=== PATIENT | female | born 1995 | race Caucasian/White ===

== ENCOUNTER 2024-09-01 21:45 | Observation (INO) | payer OTHER, SELFPAY ==
--- OUTSIDE RECORDS SUMMARY | 2024-07-31 15:15 | XMS_ITS | Encounter Summary ---
Author Organization [facility] Address [address] [place] [address] Phone Care Team Providers Care Clinical Lab Technologist Name Role Phone Misa Reed PA-C Primary Care Provider [phone] Violetta Gallegos MD Unavailable Reason for Visit * Reason Comments Routine Visit Pt would like to discuss weight gain Encounter Details Date Type Department Care Team (Latest Contact Info) Description 07/31/2024 3:15 PM EDT Routine [facility] [address] [place] [phone] Elodia Ward, TOLL GATE KEEPER-CN [address] Department of SHIP/REC/DOC CONTROL-Nurse Midwifery [place], [place] [id number] POTS (postural orthostatic tachycardia syndrome) (Primary Dx); Vasovagal syncope; 23 weeks gestation of ([facility]); Anxiety and depression; Mild intermittent asthma without complication ([facility]); Heart palpitations Social History Tobacco Use Types Packs/Day Years Used Date Smoking Tobacco: Never Smokeless Tobacco: Never Alcohol Use Standard Drinks/Week Comments Not Currently 0 (1 standard drink = 0.6 oz pur e alcohol) Social PHQ-2 Answer Date Recorded Patient Health Questionnaire-2 Score 0 02/29/2024 Frederick Depression Scale Answer Date Recorded Frederick Depression Scale Total 0 08/21/2024 The thought of harming myself has occurred to me . Never 08/21/2024 Estimated Date of Delivery Comme nts Yes 11/22/2024 Based on Ultraso und Sex and Gender Information Value Date Recorded Sex Assigned at Female 12/02/2022 7:30 AM EDT Legal Sex Female 3:02 AM EST Gender Identity Female 12/02/2022 7:30 AM EDT Sexual Orientation Not on file COVID-19 Exposure Response Date Recorded In the last 10 days, have yo u been in contact with someone who was confirmed or suspected to have Coronavirus/COVID-19? No / Unsure 07/18/2024 4:20 PM EDT documented as of this encounter Last Filed Vital Signs Vital Sign Reading Time Taken Comments Blood Pressure 116/78 07/31/2024 3:36 PM EDT Pulse - - Temperature - - Respiratory Rate - - Oxygen Saturation - - Inhaled Oxygen Concentration - - Weight 90 kg (198 lb 6.4 oz) 07/31/2024 3:36 PM EDT Height - - Body Mass Index 33.02 05/24/2024 5:43 PM EDT documented in this encounter Patient Instructions * Patient Instructions* Elodia Ward APRN-LUL - 07/31/2024 3:15 PM EDT The [facility] at [facility] has a Certified Nurse Venetian Blind Worker data solutions architect 30/08 who is available to discuss any related concerns or urgent needs that cannot wait until the next business day. Please call the office where you are seen at during the day. call center specialist numbers for after hours are listed below. At any time you would like to tour our facilities, please call [phone] to set up a tour If you are (less than 37) weeks and experience: More than 5 contractions in an 1 hour period If you have fluid leaking from your vagina Bleeding that is as heavy as a period Decreased movements or changes in your baby's movement after 24 weeks A headache that does not go away with Tylenol or rest If you full term (37 weeks or greater) and experience: Contractions that are 5 minutes a part for 2 hours that you cannot walk or talk through A gush of fluid from your vagina Bleeding that is as heavy as a period Decrease movements or changes in your baby's movements A headache that does not go away with Tylenol or rest During the weekday office hours please call the office you are normally seen at. For non-urgent OB needs, please contact our OB coordinator MFelixF during normal business hours by calling [phone] After hours please call: For patients planning on birthing at [facility] and need to speak to the the underground supervisor data solutions architect: [phone] For patients planning on birthing at [facility] or [facility]) and need to speakto the underground supervisor data solutions architect: [phone] DO NOT USE Curio MESSAGES FOR URGENT NEEDS- THEY ARE NOT MONITORED 30/08 documented in this encounter Progress Notes * JÚNIOR Alva - 07/31/2024 3:15 PM EDT Ob Visit 07/31/24 SUBJECTIVE HPI: Janeth Clark is a 29 y.o. at 23w5d here for RPNV. She has no contractions, bleeding, or LOF. Reports normal movement. Patient reports no concerns today OBJECTIVE Visit Vitals BP 116/78 Wt 90 kg (198 lb 6.4 oz) LMP 02/20/2024 BMI 33.02 kg/m?? OB Status Smoking Status Never BSA 2.03 m?? ASSESSMENT & PLAN Janeth Clark is a 29 y.o. at 23w5d here for the following concerns we addressed today: Problem List Items Addressed This Visit 23 weeks gestation of ([facility]) Overview Desired provider in labor: [x] CNM [] Physician [] Either Acceptable [x] Blood Products: [x] Yes, accepts [] No, needs counseling [x] Initial BMI: 31.28 [x] Labs: A1c added [x] Cervical Cancer Screening up to date [x] Rh status: pos [x] Screen for IPV and Substance Use Risk: [x] Genetic Screening (cfDNA): neg [x] First Trimester Anatomy Screen (11-13.6 wks): [x] Baby ASA (initiated): [x] dated by: [x] Anatomy US: (19-20 wks) [] Federal Sterilization consent signed (if indicated): [] 1hr GCT at 24-28wks: ordered 07/31 [] Rhogam (if indicated): [] Surveillance (if indicated): [] Tdap (27-32 wks, may be given up to 36 wks if initial window missed): [] RSV (32-36 wks) ( to end feb): [] Feeding Intentions: [] control method: [] GBS at 36 - 37 wks: [] 39 weeks discussion of IOL vs. Expectant management: [] Mode of delivery ( anticipated ): Relevant Orders CBC Anemia Panel With Reflex, Glucose, 1 Hour Screen, Syphilis Screen with Reflex Anxiety and depression Overview - Has been stable on Zoloft 25 mg daily Heart palpitations Mild intermittent asthma without complication ([facility]) Overview - Current med: prn albuterol inhaler Exercise inducted POTS (postural orthostatic tachycardia syndrome) - Primary Vasovagal syncope Overview - Following with hemmer chainstitch, Dr. Gallegos - 05/07/22 - echocardiogram was normal - 05/04/22 - 48hr Holter Monitor was normal - 04/22/22 - EKG with sinus tachycardia, otherwise normal 04/27/23 - no longer taking beta dale, taking kCl 20MEQ ER Added to CNM case review 04/03, ok to continue to CN care. Needed follow up. RTC in 4 weeks JÚNIOR Alva documented in this encounter Plan of Treatment Upcoming Encounters Date Type Department Care Team (Late st Contact Info) Description 09/11/2024 2:30 PM EDT Routine [facility] [address] [address] Elodia Ward APRN-CNM [address] Department of SHIP/REC/DOC CONTROL-[place] [address] 09/25/2024 2:30 PM EDT Routine [facility] [address] [facility] [address] [place] [address] Elodia Ward, TOLL GATE KEEPER-CNM [address] Department of SHIP/REC/DOC CONTROL-[place] [address] 10/09/2024 2:45 PM EDT Routine [facility] [address] [address] Elodia Ward, TOLL GATE KEEPER-CNM [address] Department of SHIP/REC/DOC CONTROL-[place] [address] 10/23/2024 2:45 PM EDT Routine [facility] [address] [address] Elodia Ward, TOLL GATE KEEPER-CNM [address] Department of SHIP/REC/DOC CONTROL-[place]urse [place] [address] 10/30/2024 3:00 PM EDT Routine [facility] [address] [phone] Elodia Ward, TOLL GATE KEEPER-CNM [address] Department of SHIP/REC/DOC CONTROL-Nurse [place] [address] 11/06/2024 3:15 PM EDT Routine [facility] [address] [address] Elodia Ward, TOLL GATE KEEPER-CNM [address] Department of SHIP/REC/DOC CONTROL-[place] [address] 11/13/2024 3:15 PM EDT Routine [facility] [address] [address] Elodia Ward, TOLL GATE KEEPER-CNM [address] Department of SHIP/REC/DOC CONTROL-[place]urse [place] [address] 11/20/2024 4:00 PM EDT Office Visit [facility] Medical Office Building [address] [facility] [address] [place] [address] Violetta Gallegos MD [address] [facility] [address] [place] [address] 11/21/2024 8:00 AM EDT Routine [address] [place] [phone] [facility] [address] [facility] Department of SHIP/REC/DOC CONTROL-[place] [address] documented as of this encounter Procedures Procedure Name Priority Date/Time Associated Diagnosis Comments REFLEX ADDED, ANEMIA PANEL Routine 08/21/2024 2:27 PM EDT 23 weeks gestation of ([facility]) CBC ANEMIA PANEL WITH REFLEX, Routine 08/21/2024 2:27 PM EDT 23 weeks gestation of ([facility]) CBC Routine 08/21/2024 2:27 PM EDT 23 weeks gestation of ([facility]) SYPHILIS SCREENING WITH REFLEX Routine 08/21/2024 2:25 PM EDT 23 weeks gestation of ([facility]) GLUCOSE, 1 HOUR SCREEN, Routine 08/21/2024 2:25 PM EDT 23 weeks gestation of ([facility]) documented in this encounter Results * CBC Anemia Panel with Reflex, (08/21/2024 2:27 PM EDT) Reflex added, Anemia panel No reflex. 08/22/2024 2:04 AM EDT [facility] Blood Venous blood specimen / Unknown Venipuncture / Unknown 08/21/2024 2:27 PM EDT 08/21/2024 9:46 PM EDT Elodia Ward TOLL GATE KEEPER-CNM LAB BLOOD ORDERABLES Final Result [facility] [address] [address] [place] [address] * (ABNORMAL) CBC (08/21/2024 2:27 PM EDT) WBC 10.3 4.4 - 11.3 x10*3/uL LAB HEMATOLOGY METHOD 08/21/2024 9:51 PM EDT [facility] nRBC 0.0 0.0 - 0.0 /100 WBCs LAB HEMATOLOGY METHOD 08/21/2024 9:51 PM EDT [facility] RBC 3.81(L) 4.00 - 5.20 x10*6/uL LAB HEMATOLOGY METHOD 08/21/2024 9:51 PM EDT [facility] Hemoglobin 11.8(L) 12.0 - 16.0 g/dL LAB HEMATOLOGY METHOD 08/21/2024 9:51 PM EDT [facility] Hematocrit 35.4(L) 36.0 - 46.0 % LAB HEMATOLOGY METHOD 08/21/2024 9:51 PM EDT [facility] MCV 93 80 - 100 fL LAB HEMATOLOGY METHOD 08/21/2024 9:51 PM EDT [facility] MCH 31.0 26.0 - 34.0 pg LAB HEMATOLOGY METHOD 08/21/2024 9:51 PM EDT [facility] MCHC 33.3 32.0 - 36.0 g/dL LAB HEMATOLOGY METHOD 08/21/2024 9:51 PM EDT [facility] RDW 12.9 11.5 - 14.5 % LAB HEMATOLOGY METHOD 08/21/2024 9:51 PM EDT [facility] Platelets 330 150 - 450 x10*3/uL LAB HEMATOLOGY METHOD 08/21/2024 9:51 PM EDT [facility] Blood Venous blood specimen / Unknown Venipuncture / Unknown 08/21/2024 2:27 PM EDT 08/21/2024 9:46 PM EDT Elodia Lance Sylvia [facility] BLOOD ORDERABLES Final Result [facility] [address] [place] [address] * Syphilis Screen with Reflex (08/21/2024 2:25 PM EDT) T. PALLIDUM AB Negative Negative [facility] Comment: No antibodies to T. pallidum (the agent causing syphilis) were detected in the specimen. This result, however, does not exclude very recent T. pallidum infection; testing of a second specimen, collected 2-4 weeks after this specimen, is recommended if the index of suspicion for recent infection is high. Blood Venous blood specimen / Unknown 08/21/2024 2:25 PM EDT 08/21/2024 2:26 PM EDT Narrative GENE MOTA - 08/23/2024 7:40 PM EDT FASTING:NO FASTING: NO Elodia Ward [facility] BLOOD ORDERABLES Final Result Performing Organization Address City/[facility]/ZIP Co de Phone Number GENE FERMIN [address] [facility]ER[facility] [facility] [place] H[place]ITALJeffW[place], [place] [phone] [facility]Celena [facility] [place] [address] [facility] [address] [place], [place] * Glucose, 1 Hour Screen, (08/21/2024 2:25 PM EDT) GLUCOSE, GESTATIONAL SCREEN (50G)-135 CUTOFF 113 <135 mg/dL [facility] Blood Venous blood specimen / Unknown 08/21/2024 2:25 PM EDT 08/21/2024 2:26 PM EDT Narrative [facility] - 08/23/2024 7:40 PM EDT FASTING:NO FASTING: NO us Elodia Ward TOLL GATE KEEPER-CNM LAB BLOOD ORDERABLES Final Result [facility] [employer] [facility] [address] [place] [address] documented in this encounter Visit Diagnoses Diagnosis POTS (postural orthostatic tachycardia syndrome)- Primary Unspecified tachycardia Vasovagal syncope Syncope and collapse 23 weeks gestation of ([facility]) Anxiety and depression Mild intermittent asthma without complication ([facility]) Heart palpitations Palpitations documented in this encounter Additional Health Concerns Assessment Noted Time A fall risk assessment has been complete d for the patient 02/29/2024 8:30 AM EST documented as of this encounter Care Teams Clinical Lab Technologist Relationship Specialty Start Date End Date Misa Reed PA-C [address] [facility] [address] [place] [address] PCP - General Family Medicine 10/12/22 Violetta Gallegos MD [address] [facility] [address] [place] [address] Consulting Physician Cardiology 03/03/23 documented as of this encounter
--- OUTSIDE RECORDS SUMMARY | 2024-08-21 14:30 | XMS_ITS | Encounter Summary ---
Author Organization [facility] Address [address] [place] [address] Phone Care Team Providers Care Heliotherapist Name Role Phone Misa Reed PA-C Primary Care Provider [phone] Violetta Gallegos MD Unavailable Reason for Visit * Reason Comments Routine Visit No concerns Encounter Details Date Type Department Care Team (Latest Contact Info) Description 08/21/2024 2:30 PM EDT Routine [facility] [address] [phone] Elodia Ward, STORAGE BATTERY CHARGER-CN [address] Department of INTERLACER-Nurse Midwifery [place], [place] [phone] POTS (postural orthostatic tachycardia syndrome) (Primary Dx); Tachycardia; Vasovagal syncope; 26 weeks gestation of ([facility]); Anxiety and depression; Mild intermittent asthma without complication ([facility]) Social History Tobacco Use Types Packs/Day Years Used Date Smoking Tobacco: Never Smokeless Tobacco: Never Alcohol Use Standard Drinks/Week Comments Not Currently 0 (1 standard drink = 0.6 oz pur e alcohol) Social PHQ-2 Answer Date Recorded Patient Health Questionnaire-2 Score 0 02/29/2024 Delight Depression Scale Answer Date Recorded Delight Depression Scale Total 0 08/21/2024 The thought of harming myself has occurred to me . Never 08/21/2024 Estimated Date of Delivery Comme nts Yes 11/22/2024 Based on Ultraso und Sex and Gender Information Value Date Recorded Sex Assigned at Female 12/02/2022 7:30 AM EDT Legal Sex Female 3:02 AM EST Gender Identity Female 12/02/2022 7:30 AM EDT Sexual Orientation Not on file documented as of this encounter Last Filed Vital Signs Vital Sign Reading Time Taken Comments Blood Pressure 124/72 08/21/2024 2:34 PM EDT Pulse - - Temperature - - Respiratory Rate - - Oxygen Saturation - - Inhaled Oxygen Concentration - - Weight 94.5 kg (208 lb 6.4 oz) 08/21/2024 2:34 P M EDT Height - - Body Mass Index 34.68 05/24/2024 5:43 PM EDT documented in this encounter Progress Notes * Elodia Ward, [facility] - 08/21/2024 2:30 PM EDT Ob Visit 08/21/24 SUBJECTIVE HPI: Janeth Clark is a 29 y.o. at 26w5d here for RPNV. She has no contractions, no bleeding, or no LOF. Reports normal movement. OBJECTIVE Visit Vitals BP 124/72 Wt 94.5 kg (208 lb 6.4 oz) LMP 02/20/2024 BMI 34.68 kg/m?? OB Status Smoking Status Never BSA 2.08 m?? ASSESSMENT & PLAN Janeth Clark is a 29 y.o. at 26w5d here for the following concerns we addressed today: Problem List Items Addressed This Visit Tachycardia Overview - Followed by navy material inspector, Dr. Gallegos - On metoprolol XL (it helps) but trying to taper off (cardio doesn't want her on it residential) Vasovagal syncope Overview - Following with navy material inspector, Dr. Gallegos - 05/07/22 - echocardiogram was normal - 05/04/22 - 48hr Holter Monitor was normal - 04/22/22 - EKG with sinus tachycardia, otherwise normal 04/27/23 - no longer taking beta dale, taking kCl 20MEQ ER Added to CNM case review 04/03, ok to continue to CNM care. No needed follow up. Anxiety and depression Overview - Has been stable on Zoloft 25 mg daily Mild intermittent asthma without complication ([facility]) Overview - Current med: prn albuterol inhaler Exercise inducted 26 weeks gestation of ([facility]) Overview Desired provider in labor: [x] [...] (if indicated): [] 1hr GCT at 24-28wks: completed today, follow-up at next PPV [] Rhogam (if indicated): [] Surveillance (if indicated): [] Tdap (27-32 wks, may be given up to 36 wks if initial window missed): discussed at 08/21/2024 visit [] RSV (32-36 wks) ( to end of Feb): [x] Feeding Intentions: breastfeed, and pumping [] control method: [] GBS at 36 - 37 wks: [] 39 weeks discussion of IOL vs. Expectant management: [x] Mode of delivery ( anticipated ): vaginal, yeq-hojbzaftl-ehvdzu hypno classes POTS (postural orthostatic tachycardia syndrome) - Primary RTC in 2 weeks Flor MUELLER I saw and evaluated the patient. I personally obtained the evans and critical portions of the historyand physical exam or was physically present for evans and critical portions performed by the resident/ALMAS. I reviewed the resident/ALMAS's documentation and discussed the patient with the resident/ALMAS. Sara with the resident/ALMAS's medical decision making as documented in the note. JÚNIOR Alva documented in this encounter Plan of Treatment Upcoming Encounters Date Type Department Care Team (Late st Contact Info) Description 09/11/2024 2:30 PM EDT Routine [facility] [address] [facility] [address] [place] [address] Elodia Ward, STORAGE BATTERY CHARGER-CNM [address] Department of [place] [address] 09/25/2024 2:30 PM EDT Routine [facility] [address] [facility] [address] [place] [phone] Elodia Ward, STORAGE BATTERY CHARGER-CNM [address] Department of [place] [address] 10/09/2024 2:45 PM EDT Routine [facility] [address] [phone] Elodia Ward, STORAGE BATTERY CHARGER-CNM [address] Department of [place] [address] 10/23/2024 2:45 PM EDT Routine [facility] [address] [phone] Elodia Ward, STORAGE BATTERY CHARGER-CNM [address] Department of [place] [address] 10/30/2024 3:00 PM EDT Routine [facility] [address] [address] Elodia Ward, STORAGE BATTERY CHARGER-CNM [address] Department of [place] [address] 11/06/2024 3:15 PM EDT Routine [facility] [address] [facility] [address] [place] [phone] Elodia Ward, STORAGE BATTERY CHARGER-CNM [address] [facility] Department of [place] [address] 11/13/2024 3:15 PM EDT Routine [facility] [address] [facility] [address] [place] [phone] Elodia Ward, STORAGE BATTERY CHARGER-CNM [address] [facility] Department of [place] [address] 11/20/2024 4:00 PM EDT Office Visit [facility] Medical Office Building [address] [facility] [address] [place] [address] Violetta Gallegos MD [address] [place] [address] 11/21/2024 8:00 AM EDT Routine [address] [place] [phone] Elodia Ward, STORAGE BATTERY CHARGER-CNM [address] [facility] Department of [place] [address] documented as of this encounter Visit Diagnoses Diagnosis POTS (postural orthostatic tachycardia syndrome)- Primary Unspecified tachycardia Tachycardia Unspecified tachycardia Vasovagal syncope Syncope and collapse 26 weeks gestation of ([facility]) Anxiety and depression Mild intermittent asthma without complication ([facility]) documented in this encounter Additional Health Concerns Assessment Noted Time A fall risk assessment has been complete d for the patient 02/29/2024 8:30 AM EST documented as of this encounter Care Teams Heliotherapist Relationship Specialty Start Date End Date Misa Reed PA-C [address] [place] [address] [address] [place] [address] PCP - General Family Medicine 10/12/22 Violetta Gallegos MD [address] [address] Consulting Physician Cardiology 03/03/23 documented as of this encounter
--- OUTSIDE RECORDS SUMMARY | 2024-08-28 16:00 | XMS_ITS | Encounter Summary ---
Author Organization [facility] Address [address] [place] [address] Phone Care Team Providers Care Property Custodian Name Role Phone Misa Reed PA-C Primary Care Provider [phone] Violetta Gallegos MD Unavailable Encounter Details Date Type Department Care Team (Late st Contact Info) Description 08/28/2024 4:00 PM EDT [facility] [address] [facility] [address] [place] [phone] Lakeisha Georges DC [address] [facility] [address] [place], [place] [id number] Segmental and somatic dysfunction of lumbar region (Primary Dx); Chronic bilateral low back pain without sciatica; Segmental and somatic dysfunction of sacral region; Segmental and somatic dysfunction of pelvic region; Segmental and somatic dysfunction of thoracic region; Lumbar radiculopathy; Bilateral hip pain; Sacral back pain; Myalgia Social History Tobacco Use Types Packs/Day Years Used Date Smoking Tobacco: Never Smokeless Tobacco: Never Alcohol Use Standard Drinks/Week Comments Not Currently 0 (1 standard drink = 0.6 oz pur e alcohol) Social PHQ-2 Answer Date Recorded Patient Health Questionnaire-2 Score 0 02/29/[address] Depression Scale Answer Date Recorded [address] Depression Scale Total 0 08/21/2024 The thought [...] on file documented as of this encounter Progress Notes * Lakeisha Meghancaron, OTTO - 08/28/2024 4:00 PM EDT Images from the original note were not included. Subjective Patient ID: Janeth Clark is a 29 y.o. female who presents August 28, 2024 for acute right-sided low back pain. (4) VPCY Today, the patient rates their degree of pain as a 5 out of 10 on the numeric pain rating scale. Amber has started having an increase in her low back pain again. She is currently 28 weeks ,thinks that the baby went through a growth spurt recently and also suspects they are sitting lower in the abdomen now. Pain localizes to L>R lumbar and sacral regions, more sensitive to pain in extension based postures. We discussed her getting a belly band or starting to use kinesiology tape athome to help provide some additional support. She has not been sleeping as well as she likes and has started to notice additional swelling in her legs. INITIAL VISIT (07/10/2024): Janeth Crenshaw is a 29 year old female who presents to my office today as a new patient for evaluation and management of acute right-sided low back pain. She was referred by her marketing planning manager, Elodia Ward. Amber reports that her pain started 4 weeks ago, with no known cause. She is currently 21 weeks , and has never had this pain prior to her . This is also her first . She localizes the pain to the right SI joint and PSIS, in addition to pain in hip flexors bilaterally. Pain is made worse by sitting or standing for long periods of time, sleeping, weight-bearing on the right leg, and lying down. She notices that heat helps, stretching, and exercise. She is currently taking kick-boxing classes 3 times per week. She states she has to ease into movement, and that sometimes she feels as though her right leg is going to give out, although she is not noticing numbness or tingling down the leg. She has never had neonatal intensive care unit nurse before and expresses some anxiety around receiving treatment. Other: POTS due to covid, has been very stable since beginning medication. Also discussed acupuncture as an option in the future. Objective Physical Exam Musculoskeletal: Lumbar back: Tenderness present. Decreased range of motion. Positive right straight leg raise test. Back: Neurological: General: No focal deficit present. Mental Status: She is alert and oriented to person, place, and time. Cranial Nerves: No dysarthria or facial asymmetry. Sensory: Sensation is intact. Motor: Motor function is intact. Coordination: Coordination is intact. Gait: Gait is intact. Gait normal. Palpation of the following regions revealed: Thoracic: Thoracic paraspinals bilateral, muscular hypertonicity. Middle trapezius bilateral, muscular hypertonicity. Lower trapezius bilateral, muscular hypertonicity. Rhomboids bilateral, muscular hypertonicity. Lumbar: Lumbar paraspinals bilateral, hypertonicity and tenderness. Quadratus lumborum bilateral, hypertonicity and tenderness. Thoracolumbar fascia left, hypertonicity and tenderness. Gluteal left, hypertonicity and tenderness. Piriformis left, hypertonicity and tenderness. Segmental Joint(s): Segmental joint dysfunction was assessed with motion palpation and is identified in the following areas: Thoracic : T5, T6, T7, and T8 Lumbopelvic / Sacral SIJ : L2, L3, L4, L5/S1, and R SIJ Lower Extremities : R Hip and L Hip Assessment/Plan Today's Treatment Included: Spinal manipulation to the following regions of segmental dysfunction identified on examination, using age-appropriate and injury specific force. Segmental Joint(s) Thoracic : T5, T6, T7, and T8 Segmental Joint(s) Lumbopelvic/Sacral SIJ : L2, L3, L4, L5/S1, and R SIJ Extremity manipulation performed to the following regions: Lower Extremities : R Hip and L Hip Chiropractic manipulation treatment techniques utilized: Diversified CMT, Pelvic drop table technique, and Long-Grant Traction Soft tissue mobilization techniques utilized during treatment: Pin and Stretch and Ischemic compression Soft-tissue mobilization was performed in the following areas: Lower Trapezius bilateral and Rhomboids bilateral Lumbar Paraspinal mm. bilateral, Quadratus Lumborum bilateral, Thoracolumbar Fascia bilateral, Gluteal mm. Glute. Max. and Glute. Med. bilateral, and Piriformis bilateral Recommended follow-up in 2 week(s). The patient tolerated today's treatment with little or no additional discomfort and was instructed to contact the office for questions or concerns. documented in this encounter Plan of Treatment Upcoming Encounters Date Type Department Care Team (Late st Contact Info) Description 09/11/2024 2:30 PM EDT Routine [facility] [address] [phone] Elodia Ward APRN-CNArin [id number] Department of [employer] [address] 09/25/2024 2:30 PM EDT Routine [facility] [address] [phone] Elodia Ward APRN-CNM [address] Department of [employer] [address] 10/09/2024 2:45 PM EDT Routine [facility] [address] [phone] Elodia Ward APRN-CNArin [address] Department of [employer] PROFESSION[employer] [address] 10/23/2024 2:45 PM EDT Routine [facility] [address] [phone] Elodia Ward APRN-CNM [address] Department of [employer] PROFESSION[employer] [address] 10/30/2024 3:00 PM EDT Routine [facility] [address] [phone] Elodia Ward, [employer]PL[employer] REFU[employer]ER-CNM [address] Department of MEDIA PROFESSIONAL[place] [address] 11/06/2024 3:15 PM EDT Routine [facility] [address] [facility] [address] [place] [phone] Elodia Ward [employer] RE[employer]-CNM [address] Department of MEDIA PROFESSIONAL[place] [address] 11/13/2024 3:15 PM EDT Routine [facility] [address] [phone] Elodia Ward, AIRPL[employer] REFU[employer]ER-CNM [address] Department of MEDIA PROFESSION[employer] [address] 11/20/2024 4:00 PM EDT Office Visit [facility] [address] [phone] Violetta Gallegos MD [address] [place] [id number] 11/21/2024 8:00 AM EDT Routine [address] [place] [phone] Elodia Ward, AIRPL[employer] RE[employer]ER-CNM [address] Department of MEDIA PROFESSION[employer] [address] documented as of this encounter Visit Diagnoses Diagnosis Segmental and somatic dysfunction of lumbar region- Primary Chronic bilateral low back pain without sciatica Segmental and somatic dysfunction of sacral region Segmental and somatic dysfunction of pelvic region Segmental and somatic dysfunction of thoracic region Lumbar radiculopathy Thoracic or lumbosacral neuritis or radiculitis, unspecified Bilateral hip pain Pain in joint, pelvic region and thigh Sacral back pain Disorders of sacrum Myalgia Unspecified myalgia and myositis documented in this encounter Additional Health Concerns Assessment Noted Time A fall risk assessment has been complete d for the patient 02/29/2024 8:30 AM EST documented as of this encounter Care Teams Property Custodian Relationship Specialty Start Date End Date Misa Reed PA-C [address] [facility] [address] [place] [address] PCP - General Family Medicine 10/12/22 Violetta Gallegos MD [address] [facility] [address] [place] [address] Consulting Physician Cardiology 03/03/23 documented as of this encounter
[2024-09-01] VITALS (9 sets, daily range): BP systolic 146–182; BP diastolic 71–96; PULSE 56–71; TEMP 36.6
--- OUTSIDE RECORDS SUMMARY | 2024-09-01 21:54 | XMS_ITS | Clinical Summary ---
Author Organization [facility] Address [address] [place] [address] Phone Care Team Providers Care Bending Press Operator Name Role Phone Misa Reed PA-C Primary Care Provider [phone] Violetta Gallegos MD Unavailable Allergies Active Allergy Reactions Criticality Noted Date Comments Bee Venom Protein (Honey Bee) Rash Low 2010 Cantaloupe Itching High 10/20/2022 Cephalosporins Unknown,Hives High 03/29/2015 Macadamia Nut Oil Hives,Itching,Swelling High 2010 Nut - Unspecified Unknown 10/20/2022 Other GI Upset,Rash High 10/18/2010 Dodson Penicillins Unknown,Hives,Rash High 10/18/2010 Sulfa (Sulfonamide Antibiotics) Hives High 10/18/2010 Sulfamethoxazole-Trimethoprim Unknown,Hives High Tetracyclines Hives High 08/15/2021 Tree Nuts Unknown 12/06/2023 Medications EPINEPHrine 0.3 mg/0.3 mL injection syringe INJECT 0.3 ML INTRAMUSCULARLY DIRECTED 01/27/20 22 Active albuterol 90 mcg/actuation inhalerIndicatio ns:Mild intermittent asthma without complication ([facility]) Inhale 2 puffs every 6 hours if needed for wheezing. 18 g 3 05/19/19 24 Active no115/iron/folic acid ( 19 ORAL) Take by mouth. Activ e potassium chloride CR 20 mEq ER tabletIndication s:Vasovagal syncope Take 1 tablet (20 mEq) by mouth 2 times a day. 180 tablet 3 12/13/19 24 025 Active cetirizine (ZyrTEC) 10 mg tabletIndication s:Rash and other nonspecific skin eruption,Allergi c reaction, initial encounter Take 1 tablet (10 mg) by mouth once daily. 30 tablet 02/15/19 25 026 Active sertraline (Zoloft) 25 mg tabletIndication s:Anxiety and depression Take 1 tablet (25 mg) by mouth once daily. 90 tablet 1 02/28/19 25 Active Active Problems Problem Noted Date Diagnosed Date 26 weeks gestation of ([facility]) 2024 Overview (08/21/2024): Desired provider in labor: [x] CNM [] [...] RSV (32-36 wks) ( to end feb): [x] Feeding Intentions: breastfeed, and pumping [] control method: [] GBS at 36 - 37 wks: [] 39 weeks discussion of IOL vs. Expectant management: [x] Mode of delivery ( anticipated ): vaginal, gvl-vpemorcdk-ymdckk hypno classes POTS (postural orthostatic tachycardia syndrome) 04/03/2024 Mild intermittent asthma without complication ([facility]) 05/19/2023 Overview (04/03/2024): - Current med: prn albuterol inhaler Exercise inducted Assessment & Plan (05/19/2023 10:14 AM EDT): - Doing great with this - rare use - Continue current tx plan Anxiety and depression 12/13/2022 Overview (12/13/2022): - Has been stable on Zoloft 25 mg daily Assessment & Plan (12/13/2022 9:07 AM EST): - Continue current tx plan Allergy to tree nuts 11/30/2022 Heart palpitations 11/30/2022 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 Gallegos - 05/07/22 - echocardiogram was normal - 05/04/22 - 48hr Holter Monitor was normal - 04/22/22 - EKG with sinus tachycardia, otherwise normal 04/27/23 - no longer taking beta dale, taking kCl 20MEQ ER Added to CNM case review 04/03, ok to continue to CNM care. No needed follow up. Estimated Date of Delivery Comme nts Yes 11/22/2024 Based on Ultraso und Resolved Problems Problem Noted Date Diagnosed Date Resolved Date Annual physical exam 12/13/2022 025 Assessment & Plan (12/13/2022 9:01 AM EST): PREVENTIVE CARE SCREENING: - Labs/ Lipid screen: UTD - PAP: UTD, due 2024 - Tdap: UTD, due 2031 - COVID-19 vax: UTD - Mood is good - Home life is good, lives in [place] with - Work life is good - substance use mental health counselor - Discussed DIET - very balanced, healthy diet! Lots of fruits and veggies. Encouraged she continue with this. -- Encouraged to take daily vitamin D supplement - Discussed EXERCISE - Very active - kickboxing 4x/wk, weight lifting, walking dog - Encouraged pt to get yearly eye and dental exams - Encouraged to wear seatbelt - Encouraged pt to have working smoke detector/ carbon monoxide detector and to have a fire escape plan - Avoid cigarette smoking. - Limit alcohol consumption. Asthma 11/30/2022 12/13/2022 Elevated WBC count 11/30/2022 3 Fever 11/30/2022 12/13/2022 Mild concussion 11/30/2022 12/13/2022 Near syncope 11/30/2022 12/13/2022 Reaction to food 11/30/2022 12/13/2022 Right flank pain 11/30/2022 12/13/2022 Food allergy 11/30/2022 04/03/2024 Overview (01/24/2023): 03/15/2022 - Skin testing to sunflower oil was negative. Oral challenge 01/29 is negative Assessment & Plan (01/21/2023 9:39 AM EST): Oral challenge to sunflower is negative. May introduce as tolerated. 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 - Most recent TSH was mildly elevated at 4.21 on 01/19/23, normal free T4. Assessment & Plan (05/19/2023 10:11 AM EDT): - Current weight: 85.4 kg (188 lb 3.2 oz) - Weight change since last visit (-) denotes wt loss: 3.2 lbs - Weight loss needed to achieve BMI 25: 38.3 Lbs - Weight loss needed to achieve BMI 30: 8.3 Lbs - Still with healthy lifestyle - great diet and regular exercise. Congratulated the pt and encouraged she continue this - Will recheck TSH levels and watch trend there - She is still attempting to taper off the metoprolol - I do not feel that weight loss medicine is appropriate as she is not struggling with overeating or cravings. Assessment & Plan (12/13/2022 8:59 AM EST): - Continue healthy lifestyle - Continue to discuss with hangersmith tapering off metoprolol Encounters Date Type Department Care Team Description 09/01/2024 Telephone [facility] [address] [facility] [place] [address] Linda Mckeon APRN-CNM 08/31/2024 Telephone [facility] [address] [facility] [place] [phone] Rebeca Feliciano LPN Incoming Call (Swelling and elevated bp ) 08/28/2024 4:00 PM EDT [facility] [address] [facility] [address] [place] [phone] Lakeisha Georges [place] Segmental and somatic dysfunction of lumbar region (Primary Dx); Chronic bilateral low back pain without sciatica; Segmental and somatic dysfunction of sacral region; Segmental and somatic dysfunction of pelvic region; Segmental and somatic dysfunction of thoracic region; Lumbar radiculopathy; Bilateral hip pain; Sacral back pain; Myalgia 08/28/2024 Travel 08/21/2024 2:30 PM EDT Routine [facility] [address] [place] [phone] Elodia Ward, JHOAN-JAXONM POTS (postural orthostatic tachycardia syndrome) (Primary Dx); Tachycardia; Vasovagal syncope; 26 weeks gestation of ([facility]); Anxiety and depression; Mild intermittent asthma without complication ([facility]) 08/21/2024 Orders Only [facility] [address] [facility] [address] [place] [address] Elodia Ward APRN-CNM 08/20/2024 Travel 07/31/2024 4:20 PM EDT [facility] [address] [facility] [address] [place] [address] Lakeisha Georges [place] Segmental and somatic dysfunction of lumbar region (Primary Dx); Acute right-sided low back pain without sciatica; Segmental and somatic dysfunction of sacral region; Segmental and somatic dysfunction of pelvic region; Segmental and somatic dysfunction of thoracic region; Lumbar radiculopathy; Bilateral hip pain; Sacral back pain; Myalgia 07/31/2024 3:15 PM EDT Routine [facility] [address] [facility] [address] [place] [address] Elodia Ward APRN-LUL POTS (postural orthostatic tachycardia syndrome) (Primary Dx); Vasovagal syncope; 23 weeks gestation of ([facility]); Anxiety and depression; Mild intermittent asthma without complication ([facility]); Heart palpitations 07/31/2024 Travel 07/18/2024 4:20 PM EDT [facility] [address] [facility] [address] [place] [address] Lakeisha Georges DC Segmental and somatic dysfunction of lumbar region (Primary Dx); Acute right-sided low back pain without sciatica; Segmental and somatic dysfunction of sacral region; Segmental and somatic dysfunction of pelvic region; Segmental and somatic dysfunction of thoracic region; Lumbar radiculopathy; Bilateral hip pain; Sacral back pain; Myalgia 07/18/2024 Travel 07/10/2024 4:20 PM EDT [facility] [address] [facility] [address] [place] [address] Lakeisha Georges, [place] Segmental and somatic dysfunction of lumbar region (Primary Dx); Acute right-sided low back pain without sciatica; Segmental and somatic dysfunction of sacral region; Segmental and somatic dysfunction of pelvic region; Segmental and somatic dysfunction of thoracic region; Lumbar radiculopathy; Bilateral hip pain; Sacral back pain; Myalgia 07/10/2024 Travel 06/29/2024 7:30 AM EDT - 06/29/2024 11:59 PM EDT Hospital Encounter [facility] [address] [place] [phone] test positive ([facility]) Discharge Disposition: Home 06/28/2024 Travel 06/26/2024 2:30 PM EDT Routine [facility] [address] [place] [address] Vagi, Elodia R, SAFETY OFFICER-CNM Sciatica, unspecified laterality (Primary Dx); POTS (postural orthostatic tachycardia syndrome); Vasovagal syncope; 18 weeks gestation of ([facility]); Anxiety and depression; Mild intermittent asthma without complication ([facility]) 06/26/2024 Travel from Last 3 Months Immunizations Immunization Administration Dates Next Due DTaP vaccine, pediatric (INFANRIX) 04/17,10/16/1998,1997,08/16,1997 DTaP vaccine, pediatric (DAPTACEL) 04/17,10/16/1998,1997,08/16,1997 Flu vaccine (IIV4), preserva tive free *Check age/dose* 12/13/2022,11/24/2021,12/01/2020,11/10,11/16/2018,11/19/2017,11/07/2017 ,12/11/2016,11/09/2015,10/24/2013 Flu vaccine, quadrivalent, n o egg protein, age 6 month or greater (FLUCELVAX) 06/18/2022,11/19/2017,12/11/2016,11/08,11/24/2009 HPV 9-valent vaccine (GARDASIL 9) 04/28/2015, HPV, Quadrivalent 09/25/2012,05/06/2009 Hepatitis A vaccine, age 19 years and greater (HAVRIX) 06/18/2022 Hepatitis B vaccine, 19 yrs and under (RECOMBIVAX, ENGERIX) 1997,1997,1997 HiB PRP-OMP conjugate vaccin e, pediatric (PEDVAXHIB) 07/15/1998,1997,1997,06/14 HiB PRP-T conjugate vaccine (HIBERIX, ACTHIB) 07/15/1998,1997,1997,06/14 Influenza, Unspecified 02/10/2012 Influenza, live, intranasal, quadrivalent 09/25/2012 Influenza, seasonal, injectable 12/02/19,11/07/2017,09/25/2012,02/09,11/24/2009 MMR vaccine, subcutaneous (MMR II) 04/17/2002,,04/18/1998 Meningococcal ACWY-D (Menact ra) 4-valent conjugate vaccine 04/28/2015,01/06/2010,11/06/2009,05/06 Moderna COVID-19 vaccine, 12 years and older (50mcg/0.5mL)(Spikevax) 11/19/2022 Moderna COVID-19 vaccine, bi valent, blue cap/gutiérrez label *Check age/dose* 11/13/2021 Moderna SARS-CoV-2 Vaccination 12/05/2020,2020,02/13/2020 Poliovirus vaccine, subcutan eous (IPOL) 04/16/2002,10/16/1998,10/14/1998 Tdap vaccine, age 7 year and older (BOOSTRIX, ADACEL) 01/26/2022,11/06/2009,05/06/2009 Typhoid, ViCPs 06/18/2022 Varicella vaccine, subcutane ous (VARIVAX) 11/06/2009,05/06/2009,04/17/2002,04/20,04/18/1998 Family History Medical History Relation Name Comments Asthma Brother 1 Brothers Asthma Brother 2 Brothers Alcohol abuse Father Father s side Drug abuse Father Father s side Hypertension Father Father s side heart stent Father Father s side maker Father's Brother Hypertension Maternal Grandmother 1 Grandma Hypertension Maternal Grandmother 2 Grandma Asthma Mother Mom Chronic bronchitis Mother Mom Miscarriages / Stillbirths Mother Mom labor Mother Mom food allergy Mother Mom hyperemeis Mother Mom during pregnanc y seasonal allergy Mother Mom sinus problem Mother Mom Alcohol abuse Paternal Grandfather Dad Dementia Paternal Grandfather Dad Asthma Sibling food allergy Sibling snius problem Sibling Asthma Sister 1 Sisters Asthma Sister 2 Sisters Relation Name Status Comments Brother 1 Brothers Alive Brother 2 Brothers Alive Father Father s side Alive Father's Brother Alive Maternal Grandfather Alive Maternal Grandmother 1 Grandma Alive Maternal Grandmother 2 Grandma Alive Mother Mom Alive Paternal Grandfather Dad Paternal Grandmother Alive Sibling Sister 1 Sisters Alive Sister 2 Sisters Alive Social History Tobacco Use Types Packs/Day Years Used Date Smoking Tobacco: Never Smokeless Tobacco: Never Tobacco Cessation:Counseling Given: Not Answered Alcohol Use Standard Drinks/Week Comments Not Currently 0 (1 standard drink = 0.6 oz pur e alcohol) Social PHQ-2 Answer Date Recorded Patient Health Questionnaire-2 Score 0 02/29/2024 Ono Depression Scale Answer Date Recorded Ono Depression Scale Total 0 08/21/2024 The thought of harming myself has occurred to me . Never 08/21/2024 Estimated Date of Delivery Comme nts Yes 11/22/2024 Based on Ultraso und Sex and Gender Information Value Date Recorded Sex Assigned at Female 12/02/2022 7:30 AM EDT Legal Sex Female 3:02 AM EST Gender Identity Female 12/02/2022 7:30 AM EDT Sexual Orientation Not on file Last Filed Vital Signs Vital Sign Reading Time Taken Comments Blood Pressure 124/72 08/21/2024 2:34 PM EDT Pulse 99 05/24/2024 5:43 PM EDT Temperature 36.7 C (98 F) 05/24/2024 5:43 PM EDT Respiratory Rate 20 05/24/2024 5:43 PM EDT Oxygen Saturation 98% 05/24/2024 5:43 PM EDT Inhaled Oxygen Concentration - - Weight 94.5 kg (208 lb 6.4 oz) 08/21/2024 2:34 P M EDT Height 165.1 cm (5' 5 ) 05/24/2024 5:43 PM EDT Body Mass Index 34.68 05/24/2024 5:43 PM EDT Plan of Treatment Upcoming Encounters Date Type Department Care Team (Late st Contact Info) Description 09/11/2024 2:30 PM EDT Routine [facility] [address] [facility] [address] [place] [address] Elodia Ward, SAFETY OFFICER-CNM [address] Department of RISK ADVIS[place] [address] 09/25/2024 2:30 PM EDT Routine [facility] [address] [phone] Elodia Ward, SAFETY OFFICER-CNM [address] Department of RISK ADVISOR[place] [address] 10/09/2024 2:45 PM EDT Routine [facility] [address] [phone] Elodia Ward, SAFETY OFFICER-CNM [address] Department of RISK ADVISOR[place] [address] 10/23/2024 2:45 PM EDT Routine [facility] [address] [address] Elodia Ward, SAFETY OFFICER-CNM [address] Department of RISK ADVISOR[place] [address] 10/30/2024 3:00 PM EDT Routine [facility] [address] [address] Elodia Ward, SAFETY OFFICER-CNM [address] Department of RISK ADVISOR[place] [address] 11/06/2024 3:15 PM EDT Routine [facility] [address] [facility] [address] [place] [phone] Elodia Ward, JHOAN-CNM [address] Department of RISK ADVISOR[place] [address] 11/13/2024 3:15 PM EDT Routine [facility] [address] [facility] [address] [place] [phone] Elodia Ward, SAFETY OFFICER-CNArin [address] [facility] Department of RISK ADVISOR[place] [address] 11/20/2024 4:00 PM EDT Office Visit [facility] Medical Office Building [address] [address] Violetta Gallegos MD [address] [place] [address] 11/21/2024 8:00 AM EDT Routine [address] [place] [phone] Elodia Ward, SAFETY OFFICER-CNM [address] [facility] Department of RISK ADVIS[place] [address] Health Maintenance Due Date Last Done Comments IPV Vaccines (3 of 3 - 4-dose series) 10/17/2002 04/16/2002, 10/16/1998, 10/14/1998 Pneumococcal Vaccine: Pediatrics and At-Risk Adult Patients (1 of 2 - PCV) 2016 Influenza Vaccine (#1) 2024 , 12/13/2022, 06/18/2022, Additional history exists RSV High Risk: (Elderly (60+) or Population) (1 - Risk 1-dose series) 10/08/2024 Yearly Adult Physical 12/06/2024 12/06/2023 , 12/13/2022, 12/02/2022, Additional history exists Cervical Cancer Screening 04/03/2027 Pap Smear 04/03/2027 04/03/2024, 11/07, 09/12/2018 Lipid Panel 01/21/2028 01/20/2023, 09/17/2021 HPV/Cotest 04/03/2029 04/03/2024 DTaP/Tdap/Td Vaccines (9 - Td or Tdap) 01/27/2032 01/26/2022, 11/06/2009, 05/06/2009, Additional history exists Zoster Vaccines (1 of 2) 04/13/2047 010, 05/06/2009, 04/17/2002, Additional history exists Hepatitis B Vaccines Completed 1997, 1997, 1997 HIB Vaccines Completed 07/15/1998, 09/1998, 1997, Additional history exists MMR Vaccines Completed 04/17/2002, 04/07, 04/18/1998 Varicella Vaccines Completed 11/06/2009, 0 05/06/2009, 04/17/2002, Additional history exists HPV Vaccines Completed 04/28/2015, 09/07, 11/06/2009, Additional history exists Meningococcal Vaccine Completed 04/28/2015 , 01/06/2010, 11/06/2009, Additional history exists Hepatitis A Vaccines Aged Out 06/18/2022 No long er eligible based on patient's age to complete this topic COVID-19 Vaccine Completed 12/09/2023, , 11/13/2021, Additional history exists HIV Screening Completed 04/25/2024 Hepatitis C Screening Completed 04/25/2024 Rotavirus Vaccines Aged Out No longer eligible based on patient's age to complete this topic Procedures Procedure Name Priority Date/Time Associated Diagnosis Comments REFLEX ADDED, ANEMIA PANEL Routine 08/21/2024 2:27 PM EDT 23 weeks gestation of ([facility]) CBC Routine 08/21/2024 2:27 PM EDT 23 weeks gestation of ([facility]) CBC ANEMIA PANEL WITH REFLEX, Routine 08/21/2024 2:27 PM EDT 23 weeks gestation of ([facility]) SYPHILIS SCREENING WITH REFLEX Routine 08/21/2024 2:25 PM EDT 23 weeks gestation of ([facility]) GLUCOSE, 1 HOUR SCREEN, Routine 08/21/2024 2:25 PM EDT 23 weeks gestation of ([facility]) US OB DETAIL ANATOMY Routine 06/29/2024 8:32 AM EDT test positive ([facility]) HEPATITIS C ANTIBODY Routine 04/25/2024 7:55 AM EDT test positive ([facility]) HIV 1/2 ANTIGEN/ANTIBODY SCREEN WIH REFLEX TO CONFIRMATION Routine 04/25/2024 7:55 AM EDT test positive ([facility]) HPV DNA HIGH RISK WITH GENOTYPE Routine 04/03/2024 8:55 AM EST Cervical cancer screening GYNECOLOGIC CYTOLOGY CONSULTATION Routine 04/03/2024 8:55 AM EST Cervical cancer screening LIPID PANEL Routine 01/20/2023 7:07 AM EST Research study patient Research exam from Last 3 Months or Most Recently Relevant to Health Maintenance Results * CBC Anemia Panel with Reflex, (08/21/2024 2:27 PM EDT) Reflex added, Anemia panel No reflex. 08/22/2024 2:04 AM EDT [facility] Blood Venous blood specimen / Unknown Venipuncture / Unknown 08/21/2024 2:27 PM EDT 08/21/2024 9:46 PM EDT Elodia Ward SAFETY OFFICER-CNM LAB BLOOD ORDERABLES Final Result Performing Organization Address City/[facility]/ZIP Co de Phone Number [facility] [address] [address] [place] [address] * (ABNORMAL) CBC (08/21/2024 2:27 PM EDT) WBC 10.3 4.4 - 11.3 x10*3/uL LAB HEMATOLOGY METHOD 08/21/2024 9:51 PM EDT [facility] nRBC 0.0 0.0 - 0.0 /100 WBCs LAB HEMATOLOGY METHOD 08/21/2024 9:51 PM EDT [facility] RBC 3.81(L) 4.00 - 5.20 x10*6/uL LAB HEMATOLOGY METHOD 08/21/2024 9:51 PM EDT [facility] Hemoglobin 11.8(L) 12.0 - 16.0 g/dL LAB HEMATOLOGY METHOD 08/21/2024 9:51 PM EDT [facility] Hematocrit 35.4(L) 36.0 - 46.0 % LAB HEMATOLOGY METHOD 08/21/2024 9:51 PM EDT [facility] MCV 93 80 - 100 fL LAB HEMATOLOGY METHOD 08/21/2024 9:51 PM EDT [facility] MCH 31.0 26.0 - 34.0 pg LAB HEMATOLOGY METHOD 08/21/2024 9:51 PM EDT [facility] MCHC 33.3 32.0 - 36.0 g/dL LAB HEMATOLOGY METHOD 08/21/2024 9:51 PM EDT [facility] RDW 12.9 11.5 - 14.5 % LAB HEMATOLOGY METHOD 08/21/2024 9:51 PM EDT [facility] Platelets 330 150 - 450 x10*3/uL LAB HEMATOLOGY METHOD 08/21/2024 9:51 PM EDT [facility] Blood Venous blood specimen / Unknown Venipuncture / Unknown 08/21/2024 2:27 PM EDT 08/21/2024 9:46 PM EDT Elodia Ward SAFETY OFFICER-CNM LAB BLOOD ORDERABLES Final Result [facility] [address] [place] [address] * Syphilis Screen with Reflex (08/21/2024 2:25 PM EDT) T. PALLIDUM AB Negative Negative [facility] Comment: No antibodies to T. pallidum (the agent causing syphilis) were detected in the specimen. This result, however, does not exclude very recent T. pallidum infection; testing of a second specimen, collected 2-4 weeks after this specimen, is recommended if the index of suspicion for recent infection is high. Blood Venous blood specimen / Unknown 08/21/2024 2:25 PM EDT 08/21/2024 2:26 PM EDT Stephanie FERMIN - 08/23/2024 7:40 PM EDT FASTING:NO FASTING: NO Elodia R Vagi SAFETY OFFICER-CNM LAB BLOOD ORDERABLES Final Result GENE FERMIN [address] [place], [place] [phone] [facility]/Celena FerminOn license of [facility] [address] [place] [address] * Glucose, 1 Hour Screen, (08/21/2024 2:25 PM EDT) GLUCOSE, GESTATIONAL SCREEN (50G)-135 CUTOFF 113 <135 mg/dL z[facility]wu [facility] Blood Venous blood specimen / Unknown 08/21/2024 2:25 PM EDT 08/21/2024 2:26 PM EDT Stephanie [employer] [facility] - 08/23/2024 7:40 PM EDT FASTING:NO FASTING: NO Elodia R Vagi SAFETY OFFICER-CNM LAB BLOOD ORDERABLES Final Result [facility] [address] [facility] [place] [address] * US OB detail anatomy (06/29/2024 8:32 AM EDT) Anatomical Region Laterality Modality Body Ultrasound 06/29/2024 7:24 AM EDT 06/29/2024 7:24 AM EDT Narrative 06/29/2024 9:41 AM EDT Interpreted by: Marleni Hickmna Indication ======== Detailed Anatomy for Class I Obesity (BMI 30-34.9) History ====== General History Smoking: no Height 165 cm Height (ft) 5 ft Height (in) 5 in Previous Outcomes 1 Para 0 Maternal Assessment Height 165 cm Height (ft) 5 ft Height (in) 5 in Weight 86 kg Weight (lb) 189 lb Weight gain 0 kg Weight gain (lb) 0 lb BMI 31.45 kg/m Physical Exam Initial weight (lb) 189 lb ========= Patricia . Number of fetuses: 1 Dating ====== LMP on: 02/20/2024 Cycle: Very certain LMP, irregular cycle GA by LMP 18 w + 4 d MEERA by LMP: 11/26/2024 Conception: LMP Ultrasound examination on: 06/29/2024 GA by U/S based upon: AC, BPD, Femur, HC GA by U/S 19 w + 2 d MEERA by U/S: 11/21/2024 Assigned: based on ultrasound (CRL), selected on 05/17/2024 Assigned GA 19 w + 1 d Assigned MEERA: 11/22/2024 Impression ========= A targeted anatomic survey was indicated: BMI - biometry is consistent with the stated gestational age -Detailed anatomic evaluation of the brain/ventricles, face, heart/outflow tracts and chest anatomy, abdominal organ specific anatomy, number/length/architecture of limbs and detailed evaluation of the umbilical cord and placenta and other anatomy as clinically indicated was performed. -No malformations were identified on this comprehensive survey within limitations of sonographic evaluation at this gestational age. -The placenta and adnexa appear within normal today. - Transvaginal evaluation in addition to transabdominal scanning was indicated and performed due to suboptimal visualization of cervix. The cervical length is within normal limits -Today's anatomic survey was completed A normal anatomic survey does not exclude all possible structural or functional abnormalities. Thank you for allowing us to participate in the care of your patient Follow-up ======== Follow-up as clinically indicated. General Evaluation Cardiac activity present. FHR 148 bpm. movements: visualized. Presentation: cephalic Placenta: Placental site: anterior, No Previa Seen Umbilical cord: Cord vessels: 3 vessel cord. Insertion site: placental insertion: normal Amniotic fluid: Amount of AF: normal amount Biometry Standard BPD 42.2 mm 18w 5d 34% Hadlock OFD 57.9 mm 64% INTERGROWTH-21st HC 161.8 mm 19w 0d 34% Hadlock Cerebellum tr 20.1 mm 19w 5d 68% Castro Nuchal fold 4.8 mm AC 140.0 mm 19w 3d 54% Hadlock Femur 31.9 mm 19w 6d 72% Hadlock Humerus 31.2 mm 82% Chitty HC / AC 1.16 41% Hadlock EFW 299 g 19w 3d 68% Hadlock EFW (lb) 0 lb EFW (oz) 11 oz EFW by: Hadlock ([id number]) Extended Aesthetician 6.4 mm CM 5.4 mm 70% Nicolaides Nasal bone 5.6 mm Head / Face / Neck Cephalic index 0.73 4% Nicolaides Nasal bone: present Extremities / Bony Struc FL / BPD 0.76 97% Hadlock FL / HC 0.20 97% Hadlock FL / AC 0.23 88% Hadlock Other Structures FHR 148 bpm Anatomy Cranium: Normal Lateral ventricles: Normal Choroid plexus: Normal Midline falx: Normal Cavum septi pellucidi: Normal Cerebellum: Normal Cisterna magna: Normal Head / Neck Head size: Normal Head shape: Normal Rt lateral ventricle: Normal Lt lateral ventricle: Normal Rt choroid plexus: Normal Lt choroid plexus: Normal Thalami: Normal Cerebellar lobes: Normal Vermis: Normal Neck: Normal Neck: No neck masses seen Lips: Normal Profile: Normal Nose: Normal Face Nasal bone: present Maxilla: Normal Mandible: Normal Orbits: Normal 4-chamber view: Normal RVOT view: Normal LVOT view: Normal 3-vessel view: Normal 7-vhjzhd-xyfwqci view: Normal Heart / Thorax Situs: situs solitus (normal) Aortic arch view: Normal Bicaval view: Normal Cardiac position: levocardia (normal) Cardiac axis: Normal Cardiac size: normal (approx. 1/3 of thoracic area) Cardiac proportions: proportioned (normal) Cardiac rhythm: regular (normal) Rt lung: Normal Lt lung: Normal Rt diaphragm: Normal Lt diaphragm: Normal Cord insertion: Normal Stomach: Normal Kidneys: Normal Bladder: Normal Genitals: Normal Abdomen Abdom. wall: Normal Stomach: Stomach size and situs appear normal Rt kidney: Normal Lt kidney: Normal Small bowel: Normal Large bowel: Normal Cervical spine: Normal Thoracic spine: Normal Lumbar spine: Normal Sacral spine: Normal Arms: Normal Hands: normal Legs: Normal Feet: normal Rt upper arm: Normal Rt forearm: Normal Rt hand: Normal Rt fingers: Normal Lt upper arm: Normal Lt forearm: Normal Lt hand: Normal Lt fingers: Normal Rt upper leg: Normal Rt lower leg: Normal Rt foot: Normal Rt toes: Normal Lt upper leg: Normal Lt lower leg: Normal Lt foot: Normal Lt toes: Normal Position of hands: Normal Position of feet: Normal sex: male Wants to know sex: yes Genetic Screen Age 29 yrs Echogenic focus: no Ventriculomegaly: no Nuchal fold: normal Echogenic bowel: no Pyelectasis: no Short femur: no Short humerus: no Nasal bone: present Display risk: Risk at time of screening Maternal Structures Uterus / Cervix Uterus: Visualized Uterus details: Normal Cervix: Visualized Cervix details: Long and closed Approach: Transvaginal Cervical length 31.7 mm Ovaries / Tubes / Adnexa Rt ovary: Not visualized Lt ovary: Not visualized Procedure Note Marleni Hickman MD - 06/29/2024 Interpreted by: Marleni Hickman Indication ======== Detailed Anatomy for Class I Obesity (BMI 30-34.9) History ====== General History Smoking:no Krhmza443 cm Height (ft)5 ft Height (in)5 in Previous Outcomes Gravida1 Para0 Maternal Assessment Mkznms488 cm Height (ft)5 ft Height (in)5 in Zlamzu42 kg Weight (lb)189 lb Weight gain0 kg Weight gain (lb)0 lb BMI31.45 kg/m Physical Exam Initial weight (lb)189 lb ========= Patricia . Number of fetuses: 1 Dating ====== LMP on:02/20/2024 Cycle:Very certain LMP, irregular cycle GA by LMP18 w + 4 d MEERA by LMP:11/26/2024 Conception:LMP Ultrasound examination on:06/29/2024 GA by U/S based upon:AC, BPD, Femur, HC GA by U/S19 w + 2 d MEERA by U/S:11/21/2024 Assigned:based on ultrasound (CRL), selected on 05/17/2024 Assigned GA19 w + 1 d Assigned MEERA:11/22/2024 Impression ========= A targeted anatomic survey was indicated: BMI - biometry is consistent with the stated gestational age -Detailed anatomic evaluation of the brain/ventricles, face,heart/outflow tracts and chest anatomy, abdominal organ specific anatomy,number/length/architecture of limbs and detailed evaluation of the umbilical cord and placenta and otherfetal anatomy as clinically indicated was performed. -No malformations were identified on this comprehensive survey withinlimitations of sonographic evaluation at this gestational age. -The placenta and adnexa appear within normal today. - Transvaginal evaluation in addition to transabdominal scanning wasindicated and performed due to suboptimal visualization of cervix. Thecervical length is within normal limits -Today's anatomic survey was completed A normal anatomic survey does not exclude all possible structural orfunctional abnormalities. Thank you for allowing us to participate in thecare of your patient Follow-up ======== Follow-up as clinically indicated. General Evaluation Cardiac activity present. FHR 148 bpm. movements: visualized.Presentation: cephalic Placenta: Placental site: anterior, No Previa Seen Umbilical cord: Cord vessels: 3 vessel cord. Insertion site: placentalinsertion: normal Amniotic fluid: Amount of AF: normal amount Biometry Standard BPD42.2 mm18w 5d 34% Hadlock OFD57.9 mm 64% INTERGROWTH-21st HC161.8 mm19w 0d 34% Hadlock Cerebellum tr20.1 mm19w 5d 68% Castro Nuchal fold4.8 mm AC140.0 mm19w 3d 54% Hadlock Femur31.9 mm19w 6d 72% Hadlock Laarlmy57.2 mm 82% Chitty HC / AC1.16 41% Hadlock BGY617 g19w 3d 68% Hadlock EFW (lb)0 lb EFW (oz)11 oz EFW by:Hadlock ([id number]) Extended Vp6.4 mm CM5.4 mm 70% Nicolaides Nasal bone5.6 mm Head / Face / Neck Cephalic index0.73 4% Nicolaides Nasal bone:present Extremities / Bony Struc FL / BPD0.76 97% Hadlock FL / HC0.20 97% Hadlock FL / AC0.23 88% Hadlock Other Structures WCS724 bpm Anatomy Cranium:Normal Lateral ventricles:Normal Choroid plexus:Normal Midline falx:Normal Cavum septi pellucidi:Normal Cerebellum:Normal Cisterna magna:Normal Head / Neck Head size:Normal Head shape:Normal Rt lateral ventricle:Normal Lt lateral ventricle:Normal Rt choroid plexus:Normal Lt choroid plexus:Normal Thalami:Normal Cerebellar lobes:Normal Vermis:Normal Neck:Normal Neck:No neck masses seen Lips:Normal Profile:Normal Nose:Normal Face Nasal bone:present Maxilla:Normal Mandible:Normal Orbits:Normal 4-chamber view:Normal RVOT view:Normal LVOT view:Normal 3-vessel view:Normal 9-pidsjy-grouctu view:Normal Heart / Thorax Situs:situs solitus (normal) Aortic arch view:Normal Bicaval view:Normal Cardiac position:levocardia (normal) Cardiac axis:Normal Cardiac size:normal (approx. 1/3 of thoracic area) Cardiac proportions:proportioned (normal) Cardiac rhythm:regular (normal) Rt lung:Normal Lt lung:Normal Rt diaphragm:Normal Lt diaphragm:Normal Cord insertion:Normal Stomach:Normal Kidneys:Normal Bladder:Normal Genitals:Normal Abdomen Abdom. wall:Normal Stomach:Stomach size and situs appear normal Rt kidney:Normal Lt kidney:Normal Small bowel:Normal Large bowel:Normal Cervical spine:Normal Thoracic spine:Normal Lumbar spine:Normal Sacral spine:Normal Arms:Normal Hands:normal Legs:Normal Feet:normal Rt upper arm:Normal Rt forearm:Normal Rt hand:Normal Rt fingers:Normal Lt upper arm:Normal Lt forearm:Normal Lt hand:Normal Lt fingers:Normal Rt upper leg:Normal Rt lower leg:Normal Rt foot:Normal Rt toes:Normal Lt upper leg:Normal Lt lower leg:Normal Lt foot:Normal Lt toes:Normal Position of hands:Normal Position of feet:Normal sex:male Wants to know sex:yes Genetic Screen Age29 yrs Echogenic focus:no Ventriculomegaly:no Nuchal fold:normal Echogenic bowel:no Pyelectasis:no Short femur:no Short humerus:no Nasal bone:present Display risk:Risk at time of screening Maternal Structures Uterus / Cervix Uterus:Visualized Uterus details:Normal Cervix:Visualized Cervix details:Long and closed Approach:Transvaginal Cervical ergntk60.7 mm Ovaries / Tubes / Adnexa Rt ovary:Not visualized Lt ovary:Not visualized us Elodia Ward SAFETY OFFICER-CNM IMG OB US PROCEDURES Final Result * Hepatitis C Antibody (04/25/2024 7:55 AM EDT) HEPATITIS C ANTIBODY NON-REACT NIKOLAI NON-REACT NIKOLAI zhouwu [facility] [place] Comment: HCV antibody was non-reactive. There is no laboratory evidence of HCV infection. In most cases, no further action is required. However, if recent HCV exposure is suspected, a test for HCV RNA (test code 07261) is suggested. For additional information please refer to http://education.InfoScout/faq/FGP25w7 (This link is being provided for informational/ educational purposes only.) Blood Venous blood specimen / Unknown 04/25/2024 7:55 AM EDT 04/25/2024 7:56 AM EDT Narrative [facility] - 04/28/2024 1:50 PM EDT FASTING:NO FASTING: NO Elodia Ward APRN-CNM LAB BLOOD ORDERABLES Final Result Performing Organization Address [facility] Co de Phone Number [address], [address] [place] [address] * HIV 1/2 Antigen/Antibody Screen with Reflex to Confirmation (04/25/2024 7:55 AM EDT) Pathologist [facility] HIV AG/AB, 4TH GEN NON-REACT NIKOLAI NON-REACT NIKOLAI zhouwu [facility] [place] Comment: HIV-1 antigen and HIV-1/HIV-2 antibodies were not detected. There is no laboratory evidence of HIV infection. PLEASE NOTE: This information has been disclosed to you from records whose confidentiality may be protected by state law. If your state requires such protection, then the state law prohibits you from making any further disclosure of the information without the specific written consent of the person to whom it pertains, or as otherwise permitted by law. A general authorization for the release of medical or other information is NOT sufficient for this purpose. For additional information please refer to http://education.InfoScout/faq/DMY590 (This link is being provided for informational/ educational purposes only.) The performance of this assay has not been clinically validated in patients less than 2 years old. Blood Venous blood specimen / Unknown 04/25/2024 7:55 AM EDT 04/25/2024 7:56 AM EDT Narrative [facility] - 04/28/2024 1:50 PM EDT FASTING:NO FASTING: NO Elodia Ward APRN-CNM LAB BLOOD ORDERABLES Final Result Performing Organization Address [facility]/ZIP Co de Phone Number [facility] [employer] [address], [address] [place] [address] * THINPREP PAP TEST (04/03/2024 8:55 AM EST) Pathologist [facility] Case Report Gynecologic Cytology Case: [id number] Authorizing Provider: JÚNIOR Alva Collected: 04/03/2024854 Ordering Location: [facility] Received: 04/03/2024854 First Screen: TAJ Monk Pathologist: Kayleen Cornejo MD Specimen: ThinPrep Liquid-Based Pap-Imaging System Screen, CERVIX, SCREENING 04/25/2024 2:40 PM EDT [facility] Final Cytological Interpretation Squamous and/or Glandular Abnormality A. THINPREP PAP CERVIX, SCREENING - Specimen Adequacy Satisfactory for evaluation; absence of endocervical/trans formation zone component General Categorization Epithelial cell abnormality- squamous cell, see interpretation. Descriptive Interpretation Atypical squamous cells of undetermined significance (ASC-US) - Cervix An HPV-including Genotype test is performed (per requisition) by the Molecular Diagnostics Laboratory at [facility]. 04/25/2024 2:40 PM EDT [facility] at 1440 EDT Slide(s) initially screened by TAJ Monk at [facility] [id number] [place] [phone] By the signature on this report, the individual or group listed as making the Final Interpretation/Evette gnosis certifies that they have reviewed this case. 04/25/2024 2:40 PM EDT [facility] ThinPrep Imaging System This specimen has been analyzed by the ThinPrep Imaging System ([employer] an automated imaging and review system, which assists the laboratory in evaluating cells on ThinPrep Pap tests. Following automated imaging, selected freed from every slide were reviewed by a damper worker and/or pathologist. 04/25/2024 2:40 PM EDT [facility] Educational Note Cervical cytology is a screening procedure primarily for squamous cancers and precursors and has associated false-negative and false-positives results as evidenced by published data. Your patient's test should be interpreted in this context, together with the patient's history and clinical findings. Regular sampling and follow-up of unexplained clinical signs and symptoms are recommended to minimize false negative results. 04/25/2024 2:40 PM EDT [facility] Perform HPV HR test? Reflex if ASCUS only 04/25/2024 2:40 PM EDT [facility] Include HPV Genotype? Yes 04/25/2024 2:40 PM EDT [facility] LMP 02/20/2024 04/25/2024 2:40 PM EDT [facility] ThinPrep Cervix uteri structure / Unknown Non-blood Collection / Unknown 04/03/2024 8:55 AM EST 04/03/2024 8:55 AM EST us Elodia Ward SAFETY OFFICER-CN LAB CYTOLOGY ORDERABLES Fin al Result [facility] [address] [address] [place] [address] * HPV DNA High Risk With Genotype (04/03/2024 8:55 AM EST) HPV, high-risk Negative Negative 04/25/2024 2:40 PM EDT [facility] HPV Type 16 DNA Negative Negative 04/25/2024 2:40 PM EDT [facility] HPV Type 18 DNA Negative Negative 04/25/2024 2:40 PM EDT [facility] HPV non-Type 16 or 18 DNA Negative Negative 04/25/2024 2:40 PM EDT [facility] ThinPrep Cervix uteri structure / Unknown Non-blood Collection / Unknown 04/03/2024 8:55 AM EST 04/23/2024 12:14 PM EDT Narrative [facility] - 04/25/2024 2:40 PM EDT Testing for high-risk (HR) types of human papilloma virus (HPV) is performed by the Cat ryan HPV Test. The ryan HPV Test is a qualitative polymerase chain reaction that amplifies DNA of HPV16, HPV18, and 12 other high-risk HPV types (31, 33, 35, 39, 45, 51, 52, 56, 58, 59, 66, and 68) associated with cervical cancer and its precursor lesions. A positive result indicates the presence of HPV DNA due to one or more of the 14 genotypes: 16, 18, 31, 33, 35, 39, 45, 51, 52, 56, 58, 59, 66, and 68. Negative results indicates HPV DNA concentrations are undectectable or below the pre-set threshold for detection. False negative results may be associated with unoptimized sampling. A negative HR HPV result does not exclude the possibility of future cytologic HSIL or underlying CIN2-3 or cancer. This test is approved by the US Food and Drug Administration. Results of this test should be interpreted in conjunction with the patient Pap test results. Please refer to ASCCP current quidelines for the use of HPV DNA testing, result interpretation, and patient management. The performance of this test was verified by the Molecular Diagnostic Laboratory at [facility]. The lab is certified under the Clinical Laboratory Amendments of 1988 (CLIA 88) as qualified to perform high complexity clinical laboratory testing. PERFORMING LAB LOCATIONS [facility]: [address] [place] [address] Elodia Ward SAFETY OFFICER-CNM LAB MOLECULAR DIAGNOSTICS O RDERABLES Final Result [facility] [address] [place] [address] * (ABNORMAL) Lipid Panel (01/20/2023 7:07 AM EST) [facility] Cholesterol 175 0 - 199 mg/dL LAB CHEMISTRY METHOD 01/20/2023 10:24 AM EST [facility] Comment: Age Desirable Borderline High High 0-19 Y 0 - 169 170 - 199 >/= 200 20-24 Y 0 - 189 190 - 224 >/= 225 >24 Y 0 - 199 200 - 239 >/= 240 All ranges are based on fasting samples. Specific therapeutic targets will vary based on patient-specific cardiac risk. Pediatric guidelines reference:Pediatrics 2011, 128(S5).Adult guidelines reference: NCEP ATPIII Guidelines,KYLAH 2001, 258:2486-97 Venipuncture immediately after or during the administration of Metamizole may lead to falsely low results. Testing should be performed immediately prior to Metamizole dosing. HDL-Cholesterol 58.4 mg/dL LAB CHEMISTRY METHOD 01/20/2023 10:24 AM EST [facility] Comment: Age Very Low Low Normal High 0-19 Y < 35 < 40 40-45 ---- 20-24 Y ---- < 40 >45 ---- >24 Y ---- < 40 40-60 >60 Cholesterol/HDL Ratio 3.0 LAB CHEMISTRY METHOD 01/20/2023 10:24 AM [facility] Comment: Ref Values Desirable < 3.4 High Risk > 5.0 LDL Calculated 77 <=119 mg/dL LAB CHEMISTRY METHOD 01/20/2023 10:24 AM EST [facility] Comment: Near Borderline AGE Desirable Optimal High High Very High 0-19 Y 0 - 109 --- 110-129 >/= 130 ---- 20-24 Y 0 - 119 --- 120-159 >/= 160 ---- >24 Y 0 - 99 100-129 130-159 160-189 >/=190 VLDL 39 0 - 40 mg/dL LAB CHEMISTRY METHOD 01/20/2023 10:24 AM EST [facility] Triglycerides 196(H) 0 - 149 mg/dL LAB CHEMISTRY METHOD 01/20/2023 10:24 AM EST [facility] Comment: Age Desirable Borderline High High Very High 0 D-90 D 19 - 174 ---- ---- ---- 91 D- 9 Y 0 - 74 75 - 99 >/= 100 ---- 10-19 Y 0 - 89 90 - 129 >/= 130 ---- 20-24 Y 0 - 114 115 - 149 >/= 150 ---- >24 Y 0 - 149 150 - 199 200- 499 >/= 500 Venipuncture immediately after or during the administration of Metamizole may lead to falsely low results. Testing should be performed immediately prior to Metamizole dosing. Non HDL Cholesterol 117 0 - 149 mg/dL LAB CHEMISTRY METHOD 01/20/2023 10:24 AM [facility] Comment: Age Desirable Borderline High High Very High 0-19 Y 0 - 119 120 - 144 >/= 145 >/= 160 20-24 Y 0 - 149 150 - 189 >/= 190 ---- >24 Y 30 mg/dL above LDL Cholesterol goal Blood Venous blood specimen / Unknown Venipuncture / Unknown 01/20/2023 7:07 AM EST 01/20/2023 7:07 AM EST Shaniqua Hoyos MD LAB BLOOD ORDERABLES Final R esult [facility] [address] [facility] [address] [phone] from Last 3 Months or Most Recently Relevant to Health Maintenance Insurance * Guarantor: Janeth Crenshaw Account Type Relation to Patient Date of Phone Billing Address Personal/Family Self 1995 [phone] (Work) [address] [place] [address] [facility] * Guarantor: Janeth Crenshaw Account Type Relation to Patient Date of Phone Billing Address Personal/Family Self 1995 [phone] (Work) [address] [place] [address] [facility] [employer] Care Teams Bending Press Operator Relationship Specialty Start Date End Date Misa Reed PA-C [address] [facility] [address] [place] [address] PCP - General Family Medicine 10/12/22 Violetta Gallegos MD [address] [facility] [address] [place] [address] Consulting Physician Cardiology 03/03/23
--- OUTSIDE RECORDS SUMMARY | 2024-09-01 21:54 | XMS_ITS | Encounter Summary ---
Author Organization [facility] Address [address] [place] [address] Phone Care Team Providers Care English As A Second Language Teacher Name Role Phone Misa Reed PA-C Primary Care Provider [phone] Violetta Gallegos MD Unavailable Encounter Details Date Type Department Care Team (Latest Contact Info) Description 08/20/2024 Travel Social History Tobacco Use Types Packs/Day Years Used Date Smoking Tobacco: Never Smokeless Tobacco: Never Alcohol Use Standard Drinks/Week Comments Not Currently 0 (1 standard drink = 0.6 oz pur e alcohol) Social PHQ-2 Answer Date Recorded Patient Health Questionnaire-2 Score 0 02/29/2024 [place] Depression Scale Answer Date Recorded [place] Depression Scale Total 0 08/21/2024 The thought [...] on file documented as of this encounter Plan of Treatment Upcoming Encounters Date Type Department Care Team (Late st Contact Info) Description 09/11/2024 2:30 PM EDT Routine [facility] [address] [place] [phone] Elodia Ward, MASON HELPER-CNM [address] Department of LOGGING RAFTER [place] [address] 09/25/2024 2:30 PM EDT Routine [facility] [address] [place] [address] Elodia Ward MASON HELPER-CNM [address] Department of LOGGING [employer] [place] [address] 10/09/2024 2:45 PM EDT Routine [facility] [address] [address] Elodia Ward MASON HELPER-CNM [address] Department of LOGGING [employer] [place] [address] 10/23/2024 2:45 PM EDT Routine [facility] [address] [address] Elodia Ward MASON HELPER-CNM [address] Department of LOGGING [employer] [place] [address] 10/30/2024 3:00 PM EDT Routine [facility] [address] [address] Elodia Wadr, MASON HELPER-CNM [address] Department of LOGGING [employer] [place] [address] 11/06/2024 3:15 PM EDT Routine [facility] [address] [address] Elodia Ward MASON HELPER-CNM [address] Department of LOGGING [employer] [place] [address] 11/13/2024 3:15 PM EDT Routine [facility] [address] [facility] [address] [place] [address] Elodia Ward, MASON HELPER-CNM [address] [facility] Department of LOGGING [employer] [place] [address] 11/20/2024 4:00 PM EDT Office Visit [facility] Medical [facility] Building [address] [facility] [address] [place] [address] Violetta Gallegos MD [address] [place] [address] [address] [place] [address] 11/21/2024 8:00 AM EDT Routine [address] [place] [address] Elodia Ward, MASON HELPER-CNM [address] [facility] Department of LOGGING [employer] [place] [address] documented as of this encounter Visit Diagnoses Not on filedocumented in this encounter Additional Health Concerns Assessment Noted Time A fall risk assessment has been complete d for the patient 02/29/2024 8:30 AM EST documented as of this encounter Care Teams English As A Second Language Teacher Relationship Specialty Start Date End Date Misa Reed PA-C [address] [place] [address] [address] [place] [address] PCP - General Family Medicine 10/12/22 Violetta Gallegos MD [address] [place] [address] [address] [place] [address] Consulting Physician Cardiology 03/03/23 documented as of this encounter
--- OUTSIDE RECORDS SUMMARY | 2024-09-01 21:54 | XMS_ITS | Encounter Summary ---
Author Organization [facility] Address [address] [place] [address] Phone Care Team Providers Care Cane Pusher Name Role Phone Darya Castano MD Primary Care Provider Shahnaz Marti APRN-TEACHER EDUCATION DIRECTOR Primary Care Provider Unavailable Misa Reed PA-C Primary Care Provider [phone] Violetta Gallegos MD Unavailable Encounter Details Date Type Department Care Team (Late st Contact Info) Description 1995 Scanned Document [facility] [address] [place] [phone] Scanning, Generic Provider Social History Tobacco Use Types Packs/Day Years Used Date Smoking Tobacco: Never Assessed Comments Unknown Sex and Gender Information Value Date Recorded Sex Assigned at Female 12/02/2022 7:30 AM EDT Legal Sex Female 3:02 AM EST Gender Identity Female 12/02/2022 7:30 AM EDT Sexual Orientation Not on file documented as of this encounter Plan of Treatment Upcoming Encounters Date Type Department Care Team (Late st Contact Info) Description 09/11/2024 2:30 PM EDT Routine [facility] [address] [place] [phone] Elodia Ward, TRANSFORMATION LEAD-CNM [address] Department of PHOTOGRAPHER FINISH-Nurse Midwifery [place], [place] [id number] 09/25/2024 2:30 PM EDT Routine [facility] [address] [address] Elodia Ward, TRANSFORMATION LEAD-CNM [address] Department of PHOTOGRAPHER FINISH-[place] [address] 10/09/2024 2:45 PM EDT Routine [facility] [address] [address] Elodia Ward, TRANSFORMATION LEAD-CNM [address] Department of PHOTOGRAPHER FINISH-[place] [address] 10/23/2024 2:45 PM EDT Routine [facility] [address] [address] Elodia Ward, TRANSFORMATION LEAD-CNM [address] Department of PHOTOGRAPHER FINISH-[place] [address] 10/30/2024 3:00 PM EDT Routine [facility] [address] [address] Elodia Ward, TRANSFORMATION LEAD-CNM [address] Department of PHOTOGRAPHER FINISH-[place] [address] 11/06/2024 3:15 PM EDT Routine [facility] [address] [address] Elodia Ward, TRANSFORMATION LEAD-CNM [address] Department of PHOTOGRAPHER FINISH-[place] [address] 11/13/2024 3:15 PM EDT Routine [facility] [address] [facility] 218 [place] [phone] Elodia Ward, JHOAN-CN [address] Department of PHOTOGRAPHER FINISH-[place] [address] 11/20/2024 4:00 PM EDT Office Visit [facility] Medical Office Building 917 [facility] 130 [place] [address] Violetta Gallegos MD [address] [place] [address] 11/21/2024 8:00 AM EDT Routine [address] [place] [address] Elodia Ward, TRANSFORMATION LEAD-CN [address] Department of PHOTOGRAPHER FINISH-[place] [address] documented as of this encounter Visit Diagnoses Not on filedocumented in this encounter Care Teams Cane Pusher Relationship Specialty Start Date End Date Darya Castano MD [address] [address] PCP - General 09/18/15 02/11/22 Shahnaz Marti APRN-TEACHER EDUCATION DIRECTOR [address] [address] PCP - General 02/12/22 10/11/22 Misa Reed PA-C [address] [place] [address] [address] [place] [address] PCP - General Family Medicine 10/12/22 Violetta Gallegos MD [address] [address] Consulting Physician Cardiology 03/03/23 documented as of this encounter
--- OUTSIDE RECORDS SUMMARY | 2024-09-01 21:54 | XMS_ITS | Encounter Summary ---
Author Organization [facility] Address [address] [place] [address] Phone Care Team Providers Care Anchorman Name Role Phone Misa Reed PA-C Primary Care Provider [phone] Violetta Gallegos MD Unavailable Encounter Details Date Type Department Care Team (Late st Contact Info) Description 05/31/2024 Scanned Document [facility] [address] [place] [address] Elodia Ward, INDUSTRIAL COMMERCIAL GROUNDSKEEPER-CN [address] Department of CONCRETE ENGINEER[place] [address] Social History Tobacco Use Types Packs/Day Years Used Date Smoking Tobacco: Never Smokeless Tobacco: Never Alcohol Use Standard Drinks/Week Comments Not Currently 0 (1 standard drink = 0.6 oz pur e alcohol) Social PHQ-2 Answer Date Recorded Patient Health Questionnaire-2 Score 0 02/29/2024 [place] Depression Scale Answer Date Recorded [place] Depression Scale Total 0 04/03/2024 The thought of harming myself has occurred to me . Never 04/03/2024 Estimated Date of Delivery Comme nts Yes [...] suspected to have Coronavirus/COVID-19? No / Unsure 05/29/2024 3:59 PM EDT documented as of this encounter Plan of Treatment Upcoming Encounters Date Type Department Care Team (Late st Contact Info) Description 09/11/2024 2:30 PM EDT Routine [facility] [address] [address] Elodia Ward, INDUSTRIAL COMMERCIAL GROUNDSKEEPER-CNM [address] Department of CONCRETE ENGINEER-[place] [address] 09/25/2024 2:30 PM EDT Routine [facility] [address] [phone] Elodia Ward, INDUSTRIAL COMMERCIAL GROUNDSKEEPER-CNM [address] Department of CONCRETE ENGINEER-[place] [address] 10/09/2024 2:45 PM EDT Routine [facility] [address] [phone] Elodia Ward INDUSTRIAL COMMERCIAL GROUNDSKEEPER-CNM [address] Department of CONCRETE ENGINEER-[place] [address] 10/23/2024 2:45 PM EDT Routine [facility] [address] [phone] Elodia Ward, INDUSTRIAL COMMERCIAL GROUNDSKEEPER-CNM [address] Department of CONCRETE ENGINEER-[place] [address] 10/30/2024 3:00 PM EDT Routine [facility] [address] [address] Elodia Ward, INDUSTRIAL COMMERCIAL GROUNDSKEEPER-CNM [address] Department of CONCRETE ENGINEER-[place] [address] 11/06/2024 3:15 PM EDT Routine [facility] [address] [phone] Elodia Ward, INDUSTRIAL COMMERCIAL GROUNDSKEEPER-CNM [address] Department of CONCRETE ENGINEER-[place] [address] 11/13/2024 3:15 PM EDT Routine [facility] [address] [address] Elodia Ward, INDUSTRIAL COMMERCIAL GROUNDSKEEPER-CNM [address] Department of CONCRETE ENGINEER[place] [address] 11/20/2024 4:00 PM EDT Office Visit [facility] Medical Office Building [address] [place] [address] Violetta Gallegos MD [address] [place] [address] 11/21/2024 8:00 AM EDT Routine [address] [place] [address] Elodia Ward, INDUSTRIAL COMMERCIAL GROUNDSKEEPER-CNM [address] Department of CONCRETE ENGINEER[place] [address] documented as of this encounter Procedures Procedure Name Priority Date/Time Associated Diagnosis Comments MYRIAD - PREQUEL SC REEN - 2BP RESULTED 05/31/2024 documented in this encounter Results * MYRIAD - PREQUEL SCREEN - 2BP RESULTED (05/31/2024) us Elodia Ward INDUSTRIAL COMMERCIAL GROUNDSKEEPER-CNM LAB CYTOGENETICS ORDERABLES Final Result documented in this encounter Visit Diagnoses Not on filedocumented in this encounter Additional Health Concerns Assessment Noted Time A fall risk assessment has been complete d for the patient 02/29/2024 8:30 AM EST documented as of this encounter Care Teams Anchorman Relationship Specialty Start Date End Date Misa Reed PA-C 917 [facility] 230 [place] [address] PCP - General Family Medicine 10/12/22 iVoletta Gallegos MD 917 [facility] 130 [place] [address] Consulting Physician Cardiology 03/03/23 documented as of this encounter
--- OUTSIDE RECORDS SUMMARY | 2024-09-01 21:54 | XMS_ITS | Encounter Summary ---
Author Organization [facility] Address [address] [place] [address] Phone Care Team Providers Care Accredited Farm Manager Name Role Phone Misa Reed PA-C Primary Care Provider [phone] Violetta Gallegos MD Unavailable Encounter Details Date Type Department Care Team (Late st Contact Info) Description 05/02/2024 Scanned Document [facility] [address] [place] [address] Elodia Ward, POPCORN VENDOR-CN [address] Department of GROCERY PACKER[place] [address] Social History Tobacco Use Types Packs/Day Years Used Date Smoking Tobacco: Never Smokeless Tobacco: Never Alcohol Use Standard Drinks/Week Comments Not Currently 0 (1 standard drink = 0.6 oz pur e alcohol) Social PHQ-2 Answer Date Recorded Patient Health Questionnaire-2 Score 0 02/29/2024 Edelstein Depression Scale Answer Date Recorded Ed[place]stein Depression Scale Total 0 04/03/2024 The thought [...] suspected to have Coronavirus/COVID-19? No / Unsure 05/01/2024 3:38 PM EDT documented as of this encounter Plan of Treatment Upcoming Encounters Date Type Department Care Team (Late st Contact Info) Description 09/11/2024 2:30 PM EDT Routine [facility] [address] [phone] Elodia Ward, POPCORN VENDOR-CNM [address] Department of GROCERY PACKER[place] [address] 09/25/2024 2:30 PM EDT Routine [facility] [address] [phone] Elodia Ward, POPCORN VENDOR-CNM [address] Department of GROCERY PACKER-[place] [address] 10/09/2024 2:45 PM EDT Routine [facility] [address] [phone] Elodia Ward POPCORN VENDOR-CNM [address] Department of GROCERY PACKER-[place] [address] 10/23/2024 2:45 PM EDT Routine [facility] [address] [phone] Elodia Ward, POPCORN VENDOR-CNM [address] Department of GROCERY PACKER-[place] [address] 10/30/2024 3:00 PM EDT Routine [facility] [address] [address] Elodia Ward, POPCORN VENDOR-CNM [address] Department of GROCERY PACKER-[place] [address] 11/06/2024 3:15 PM EDT Routine [facility] [address] [phone] Elodia Ward, POPCORN VENDOR-CNM [address] Department of GROCERY PACKER-[place] [address] 11/13/2024 3:15 PM EDT Routine [facility] [address] [phone] Elodia Ward, POPCORN VENDOR-CNM [address] Department of GROCERY PACKER-[place] [address] 11/20/2024 4:00 PM EDT Office Visit [facility] Medical Office Building [address] [phone] Violetta Gallegos MD [address] [place] [address] 11/21/2024 8:00 AM EDT Routine [address] [place] [address] Elodia Ward, POPCORN VENDOR-CNM [address] Department of GROCERY PACKER[place] [address] documented as of this encounter Procedures Procedure Name Priority Date/Time Associated Diagnosis Comments UHTL - 2BP RESULTED 05/02/2024 documented in this encounter Results * UHTL - 2bP Resulted (05/02/2024) Elodia Ward POPCORN VENDOR-CNM LAB CYTOGENETICS ORDERABLES Final Result documented in this encounter Visit Diagnoses Not on filedocumented in this encounter Additional Health Concerns Assessment Noted Time A fall risk assessment has been complete d for the patient 02/29/2024 8:30 AM EST documented as of this encounter Care Teams Accredited Farm Manager Relationship Specialty Start Date End Date Misa Reed, MONICAC 917 [facility] 230 [place] [address] PCP - General Family Medicine 10/12/22 Violetta Gallegos MD 917 [facility] 130 [place] [address] Consulting Physician Cardiology 03/03/23 documented as of this encounter
--- OUTSIDE RECORDS SUMMARY | 2024-09-01 21:55 | XMS_ITS | Encounter Summary ---
Author Organization [facility] Address [address] [place] [address] Phone Care Team Providers Care Relocation Commissioner Name Role Phone Misa Reed PA-C Primary Care Provider [phone] Violetta Gallegos MD Unavailable Encounter Details Date Type Department Care Team (Late st Contact Info) Description 08/21/2024 Orders Only [facility] [address] [place] [phone] Elodia Ward, BRANCH CUSTOMER SERVICE REPRESENTATIVE-CN [address] Department of PAINT SPRAY INSPECTOR[place] [address] Social History Tobacco Use Types Packs/Day Years Used Date Smoking Tobacco: Never Smokeless Tobacco: Never Alcohol Use Standard Drinks/Week Comments Not Currently 0 (1 standard drink = 0.6 oz pur e alcohol) Social PHQ-2 Answer Date Recorded Patient Health Questionnaire-2 Score 0 02/29/2024 Leonard Depression Scale Answer Date Recorded Leonard Depression Scale Total 0 08/21/2024 The thought [...] Info) Description 09/11/2024 2:30 PM EDT Routine [facility] [address] [phone] Elodia Ward, BRANCH CUSTOMER SERVICE REPRESENTATIVE-CNM [address] Department of PAINT SPRAY INSPECTOR-[place] [address] 09/25/2024 2:30 PM EDT Routine [facility] [address] [address] Elodia Ward, BRANCH CUSTOMER SERVICE REPRESENTATIVE-CNM [address] Department of PAINT SPRAY INSPECTOR-[place] [address] 10/09/2024 2:45 PM EDT Routine [facility] [address] [phone] Elodia Ward, BRANCH CUSTOMER SERVICE REPRESENTATIVE-CNM [address] Department of PAINT SPRAY INSPECTOR-[place] [address] 10/23/2024 2:45 PM EDT Routine [facility] [address] [address] Elodia Ward, BRANCH CUSTOMER SERVICE REPRESENTATIVE-CNM [address] Department of PAINT SPRAY INSPECTOR-[place] [address] 10/30/2024 3:00 PM EDT Routine [facility] [address] [address] Elodia Ward, BRANCH CUSTOMER SERVICE REPRESENTATIVE-CNM [address] Department of PAINT SPRAY INSPECTOR-[place] [address] 11/06/2024 3:15 PM EDT Routine [facility] [address] [facility] [address] [place] [address] Elodia Ward, BRANCH CUSTOMER SERVICE REPRESENTATIVE-CNM [address] [facility] Department of PAINT SPRAY INSPECTOR-[place] [address] 11/13/2024 3:15 PM EDT Routine [facility] [address] [facility] [address] [place] [address] Elodia Ward, BRANCH CUSTOMER SERVICE REPRESENTATIVE-CN [address] [facility] Department of PAINT SPRAY INSPECTOR-[place] [address] 11/20/2024 4:00 PM EDT Office Visit [facility] Medical Office Building [address] [address] Vioeltta Gallegos MD [address] [place] [address] 11/21/2024 8:00 AM EDT Routine [address] [place] [address] Elodia Ward, BRANCH CUSTOMER SERVICE REPRESENTATIVE-CN [address] [facility] Department of PAINT SPRAY INSPECTOR-[place] [address] documented as of this encounter Visit Diagnoses Not on filedocumented in this encounter Additional Health Concerns Assessment Noted Time A fall risk assessment has been complete d for the patient 02/29/2024 8:30 AM EST documented as of this encounter Care Teams Relocation Commissioner Relationship Specialty Start Date End Date Misa Reed PA-C [address] [place] [address] 230 [place] [address] PCP - General Family Medicine 10/12/22 Violetta Gallegos MD 917 [place] [address] Consulting Physician Cardiology 03/03/23 documented as of this encounter
--- OUTSIDE RECORDS SUMMARY | 2024-09-01 21:55 | XMS_ITS | Encounter Summary ---
Author Organization [facility] Address [address] [place] [address] Phone Care Team Providers Care Emergency Medical Service Manager Name Role Phone Misa Reed PA-C Primary Care Provider Violetta Gallegos MD Unavailable Encounter Details Date Type Department Care Team (Late st Contact Info) Description 09/01/2024 Telephone [employer] OBSTETRICS GYNECOLOGY VIRTUAL [address] [facility] [place] [address] Linda Mckeon, ANTHROPOLOGIST PHYSICAL-CN [address] [phone] Social History Tobacco Use Types Packs/Day Years Used Date Smoking Tobacco: Never Smokeless Tobacco: Never Alcohol Use Standard Drinks/Week Comments Not Currently 0 (1 standard drink = 0.6 oz pur e alcohol) Social PHQ-2 Answer Date Recorded Patient Health Questionnaire-2 Score 0 02/29/2024 Morgan Depression Scale Answer Date Recorded Morgan Depression Scale Total 0 08/21/2024 The thought [...] on file documented as of this encounter Miscellaneous Notes * Telephone Encounter - JÚNIOR Douglass - 09/01/2024 9:12 PM EDT Janeth 29 yo at 28w2d Calling for elevated BP Feet have been swelling Yesterday something told her to check her BP Tracking today every 4-5hrs 10 am 159/82 1:53 pm 134/82 6pm 139/86 8:52pm 160/102 a couple minutes later 168/100 Forgot Kcl today Denies GENAO, vision change, denies RUQ or epigastric pain documented in this encounter Plan of Treatment Upcoming Encounters Date Type Department Care Team (Late st Contact Info) Description 09/11/2024 2:30 PM EDT Routine [facility] [address] [phone] Elodia Ward APRN-CNM [address] Department of RE[place] [address] 09/25/2024 2:30 PM EDT Routine [facility] [address] [address] Elodia Ward APRN-CNM [address] Department of RE[place] [address] 10/09/2024 2:45 PM EDT Routine [facility] [address] [address] Elodia Ward APRN-CNM [address] Department of REGR[place] [address] 10/23/2024 2:45 PM EDT Routine [facility] [address] [address] Elodia Ward, ANTHROPOLOGIST PHYSICAL-CNM [address] Department of REGR[place] [address] 10/30/2024 3:00 PM EDT Routine [facility] [address] [address] Elodia Ward, ANTHROPOLOGIST PHYSICAL-CNM [address] Department of REGROOVER-[place] [address] 11/06/2024 3:15 PM EDT Routine [facility] [address] [address] Elodia Ward, ANTHROPOLOGIST PHYSICAL-CNM [address] Department of REGR[place]OVER[place] [address] 11/13/2024 3:15 PM EDT Routine [facility] [address] [address] Elodia Ward, ANTHROPOLOGIST PHYSICAL-CNM [address] Department of RE[place] [address] 11/20/2024 4:00 PM EDT Office Visit [facility] Medical Office Building [address] [address] Violetta Glalegos MD [address] [address] 11/21/2024 8:00 AM EDT Routine [address] [place] [phone] Elodia Ward, ANTHROPOLOGIST PHYSICAL-CNM [address] Department of REGR[place] [address] documented as of this encounter Visit Diagnoses Not on filedocumented in this encounter Additional Health Concerns Assessment Noted Time A fall risk assessment has been complete d for the patient 02/29/2024 8:30 AM EST documented as of this encounter Care Teams Emergency Medical Service Manager Relationship Specialty Start Date End Date Misa Reed PA-C 917 [facility] 230 [place] [address] PCP - General Family Medicine 10/12/22 Violetta Gallegos MD 917 [facility] 130 [place] [address] Consulting Physician Cardiology 03/03/23 documented as of this encounter
--- OUTSIDE RECORDS SUMMARY | 2024-09-01 21:55 | XMS_ITS | Encounter Summary ---
Author Organization [facility] Address [address] [place] [address] Phone Care Team Providers Care Park Police Name Role Phone Misa eRed PA-C Primary Care Provider [phone] Violetta Gallegos MD Unavailable Encounter Details Date Type Department Care Team (Latest Contact Info) Description 08/28/2024 Travel Social History Tobacco Use Types Packs/Day Years Used Date Smoking Tobacco: Never Smokeless Tobacco: Never Alcohol Use Standard Drinks/Week Comments Not Currently 0 (1 standard drink = 0.6 oz pur e alcohol) Social PHQ-2 Answer Date Recorded Patient Health Questionnaire-2 Score 0 02/29/2024 Royal Depression Scale Answer Date Recorded Royal Depression Scale Total 0 08/21/2024 The thought [...] Info) Description 09/11/2024 2:30 PM EDT Routine [facility] [address] [place] [phone] Elodia Ward, RECREATION PROGRAMMER-CNM [address] Department of HTML WEB DEVELOPER-[place] [address] 09/25/2024 2:30 PM EDT Routine [facility] [address] [place] [address] Elodia Ward RECREATION PROGRAMMER-CNM [address] Department of HTML WEB DEVELOPER-[place] [address] 10/09/2024 2:45 PM EDT Routine [facility] [address] [address] Elodia Ward RECREATION PROGRAMMER-CNM [address] Department of HTML WEB DEVELOPER-[place] [address] 10/23/2024 2:45 PM EDT Routine [facility] [address] [address] Eoldia Ward RECREATION PROGRAMMER-CNM [address] Department of HTML WEB DEVELOPER-[place] [address] 10/30/2024 3:00 PM EDT Routine [facility] [address] [address] Elodia Ward, RECREATION PROGRAMMER-CNM [address] Department of HTML WEB DEVELOPER-[place] [address] 11/06/2024 3:15 PM EDT Routine [facility] [address] [address] Elodia Ward RECREATION PROGRAMMER-CNM [address] Department of HTML WEB DEVELOPER-[place] [address] 11/13/2024 3:15 PM EDT Routine [facility] 125 [address] [facility] 218 [place] [address] Elodia Ward, RECREATION PROGRAMMER-CNM [address] [facility] Department of HTML WEB DEVELOPER-[place] [address] 11/20/2024 4:00 PM EDT Office Visit [facility] Medical Office Building 917 [facility] 130 [place] [address] Violetta Gallegos MD [address] [place] [address] 130 [place] [address] 11/21/2024 8:00 AM EDT Routine [address] [place] [address] Elodia Ward, RECREATION PROGRAMMER-CNM [address] [facility] Department of HTML WEB DEVELOPER-[place] [address] documented as of this encounter Visit Diagnoses Not on filedocumented in this encounter Additional Health Concerns Assessment Noted Time A fall risk assessment has been complete d for the patient 02/29/2024 8:30 AM EST documented as of this encounter Care Teams Park Police Relationship Specialty Start Date End Date Misa Reed PA-C [address] [place] [address] 230 [place] [address] PCP - General Family Medicine 10/12/22 Violetta Gallegos MD [address] [place] [address] 130 [place] [address] Consulting Physician Cardiology 03/03/23 documented as of this encounter
--- OUTSIDE RECORDS SUMMARY | 2024-09-01 21:55 | XMS_ITS | Encounter Summary ---
Author Organization [facility] Address [address] [place] [address] Phone Care Team Providers Care Epic Professional Name Role Phone Misa Reed PA-C Primary Care Provider Violetta Gallegos MD Unavailable Reason for Visit * Reason Onset Date Comments Incoming Call 08/31/2024 Swelling and elevated bp Encounter Details Date Type Department Care Team (Late st Contact Info) Description 08/31/2024 Telephone [facility] [address] [facility] [place] [place] [address] Rebeca Feliciano LPN Incoming Call (Swelling and elevated bp ) Social History Tobacco Use Types Packs/Day Years Used Date Smoking Tobacco: Never Smokeless Tobacco: Never Alcohol Use Standard Drinks/Week Comments Not Currently 0 (1 standard drink = 0.6 oz pur e alcohol) Social PHQ-2 Answer Date Recorded Patient Health Questionnaire-2 Score 0 02/29/2024 Converse Depression Scale Answer Date Recorded Converse Depression Scale Total 0 08/21/2024 The thought [...] encounter Miscellaneous Notes * Telephone Encounter - Rebeca Feliciano LPN - 08/31/2024 9:53 AM EDT Elodia Sylvia patient 28.1 week ob patient called with complained of elevated blood pressure and swelling feet. Patient states that she forgot her potassuum at home. Patient states that her blood pressures were 134/98 in her right arm and 129/94 in her left arm. Patient states that her feet is swollen.However there is no pitting edema. Patient was advised to get some rest and hydrate to drink 2-3 liters of water and elevate her feet as much as she can. Patient was advised to call the office back if her blood pressures does not come down with these comfort measures. Patient verbalized understanding. Please advise any further recommendations. documented in this encounter Plan of Treatment Upcoming Encounters Date Type Department Care Team (Late st Contact Info) Description 09/11/2024 2:30 PM EDT Routine [facility] [address] [phone] Elodia Ward APRN-CNM [address] Department of PRE BILLING SPECIALIST[place] [address] 09/25/2024 2:30 PM EDT Routine [facility] [address] [phone] Elodia Ward APRN-CNArin [address] Department of PRE BILLING SPECIALIST[place] [address] 10/09/2024 2:45 PM EDT Routine [facility] [address] [phone] Elodia Ward INDUSTRIAL RENDERER-CNM [address] Department of PRE BILLING SPECIALIST[place] [address] 10/23/2024 2:45 PM EDT Routine [facility] [address] [phone] Elodia Ward, INDUSTRIAL RENDERER-CNM [address] Department of PRE BILLING SPECIALIST[place] [address] 10/30/2024 3:00 PM EDT Routine [facility] [address] [place] [phone] Elodia Ward, INDUSTRIAL RENDERER-CNM [address] Department of PRE BILLING SPECIALIST-[place] [address] 11/06/2024 3:15 PM EDT Routine [facility] [address] [phone] Elodia Ward, INDUSTRIAL RENDERER-CNM [address] Department of PRE BILLING SPECIALIST[place] [address] 11/13/2024 3:15 PM EDT Routine [facility] [address] [phone] Elodia Ward, INDUSTRIAL RENDERER-CNM [address] Department of PRE BILLING SPECIALIST[place] [address] 11/20/2024 4:00 PM EDT Office Visit [facility] [address] [place] [phone] Violetta Gallegos MD [address] [place] [address] 11/21/2024 8:00 AM EDT Routine [facility] [address] [place] [phone] Elodia Ward, INDUSTRIAL RENDERER-CN [address] Department of PRE BILLING SPECIALIST[place] [address] documented as of this encounter Visit Diagnoses Not on filedocumented in this encounter Additional Health Concerns Assessment Noted Time A fall risk assessment has been complete d for the patient 02/29/2024 8:30 AM EST documented as of this encounter Care Teams Epic Professional Relationship Specialty Start Date End Date Misa Reed PA-C 917 [facility] [address] [place] [address] PCP - General Family Medicine 10/12/22 Violetta Gallegos MD 917 [facility] [address] [place] [address] Consulting Physician Cardiology 03/03/23 documented as of this encounter
--- OUTSIDE RECORDS SUMMARY | 2024-09-01 21:55 | XMS_ITS | Encounter Summary ---
Author Organization [facility] Address [address] [place] [address] Phone Care Team Providers Care Retail Banking Manager Name Role Phone Misa Reed PA-C Primary Care Provider [phone] Violetta Gallegos MD Unavailable Reason for Referral * Imaging (Routine) - Denied Specialty Diagnoses / Procedures Referred By Contac t Referred To Contact Radiology Diagnoses Encounter for examination for normal comparison and control in clinical research program Procedures MR brain w and wo IV contrast Faustino Hoyos MD [address] [place] [address] Phone: tel: fax: Referral ID Status Reason Start Date Expiration Date V isits Requested Visits Authorized [id number] Denied Perform Procedure 01/16/2024 01/15/2025 1 0 Encounter Details Date Type Department Care Team (Latest Contact Info) Description 01/16/[address] [facility] [address] [place] [address] Faustino Hoyos MD [address] [place] [id number] Encounter for examination for normal comparison and control in clinical research program (Primary Dx) Social History Tobacco Use Types Packs/Day Years Used Date Smoking Tobacco: Never Smokeless Tobacco: Never Alcohol Use Standard Drinks/Week Comments Yes 0 (1 standard drink = 0.6 oz pur e alcohol) occas PHQ-2 Answer Date Recorded Patient Health Questionnaire-2 Score 0 12/06/2023 Comments No Sex and Gender Information Value Date Recorded Sex Assigned at Female 12/02/2022 7:30 AM EDT Legal Sex Female 3:02 AM EST Gender Identity Female 12/02/2022 7:30 AM EDT Sexual Orientation Not on file COVID-19 Exposure Response Date Recorded In the last 10 days, have yo u been in contact with someone who was confirmed or suspected to have Coronavirus/COVID-19? Unable to assess 01/12/2024 7:33 AM EST documented as of this encounter Plan of Treatment Upcoming Encounters Date Type Department Care Team (Late st Contact Info) Description 09/11/2024 2:30 PM EDT Routine [facility] [address] [phone] Elodia Ward APRN-CNM [address] Department of EDGE BANDER [place] [address] 09/25/2024 2:30 PM EDT Routine [facility] [address] [phone] Elodia Ward COATINGS INSPECTOR-CNM [address] Department of EDGE BANDER [place] [address] 10/09/2024 2:45 PM EDT Routine [facility] [address] [phone] Elodia Ward, COATINGS INSPECTOR-CNM [address] Department of EDGE BANDER [place] [address] 10/23/2024 2:45 PM EDT Routine [facility] [address] [phone] Elodia Ward, COATINGS INSPECTOR-CNM [address] Department of EDGE BANDER [place] [address] 10/30/2024 3:00 PM EDT Routine [facility] [address] [facility] [address] [place] [address] Elodia Ward, COATINGS INSPECTOR-CNM [address] Department of EDGE BANDER [place] [address] 11/06/2024 3:15 PM EDT Routine [facility] [address] [facility] [address] [place] [address] Elodia Ward, COATINGS INSPECTOR-CNM [address] Department of EDGE BANDER [place] [address] 11/13/2024 3:15 PM EDT Routine [facility] [address] [facility] [address] [place] [address] Elodia Ward, COATINGS INSPECTOR-CNM [address] Department of EDGE BANDER [place] [address] 11/20/2024 4:00 PM EDT Office Visit [facility] [address] [phone] Violetta Gallegos MD [address] [place] [address] 11/21/2024 8:00 AM EDT Routine [address] [place] [phone] Elodia Ward, COATINGS INSPECTOR-CNM [address] Department of EDGE BANDER [place] [address] documented as of this encounter Results * MR brain w and wo IV contrast (03/01/2024 6:01 PM EST) Anatomical Region Laterality Modality Neuro, Head neck Magnetic Resona nce 03/02/2024 10:2 6 AM EST 03/02/2024 10:26 AM EST Impressions 03/02/2024 10:25 AM EST Research protocol. No acute intracranial process or abnormal enhancement. Motion artifact mildly degrades assessment on several sequences with no definite focal parenchymal signal abnormality. 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 Paranasal sinus disease as above. MACRO: None Signed by: Fab Red 03/02/2024 10:25 AM Dictation workstation: [id number] Narrative 03/02/2024 10:25 AM EST Interpreted By: Fab Red, STUDY: MR BRAIN W AND WO IV CONTRAST; 03/01/2024 6:01 pm INDICATION: Signs/Symptoms:RESEARCH. ,Z00.6 Encounter for examination for normal comparison and control in clinical research program COMPARISON: None. ACCESSION NUMBER(S): [id number] ORDERING CLINICIAN: FAUSTINO HOYOS TECHNIQUE: Research protocol: Multiplanar multisequence MR imaging was performed through the brain prior to and following administration of 18 ML Dotarem intravenous contrast. Mild motion degradation on several sequences. FINDINGS: Parenchyma: There is no diffusion restriction abnormality to suggest acute infarct on DTI sequence. No evidence of recent hemorrhage. There is no mass effect or midline shift. No abnormal parenchymal or leptomeningeal enhancement. Significant focal parenchymal signal abnormality appreciated with motion artifact mildly degrading volumetric FLAIR. CSF Spaces: The ventricles, sulci and basal cisterns are within normal limits for age. Basilar cisterns are patent. Extra-axial spaces: No extra-axial fluid collection. Intracranial Flow Voids: There is decreased flow/enhancement seen within the expected location of the left sigmoid dural venous sinus with prominent enhancing emissary vein extending to the left posterior scalp (series 15, image 138). Paranasal Sinuses: Polypoid mucosal thickening of the left maxillary paranasal sinus. Additional partial opacification of the left anterior and posterior ethmoidal air cells. Additional mucosal thickening of the lsbr-sadujsn-mqag-right frontal sinuses, right ethmoidal air cells, and right maxillary paranasal sinus with scattered secretions. Mastoids: Clear. Orbits: Normal. Calvarium: No suspicious osseous marrow signal. Procedure Note Fab Red MD - 03/02/2024 Interpreted By: Fab Red, STUDY: MR BRAIN W AND WO IV CONTRAST; 03/01/2024 6:01 pm INDICATION: Signs/Symptoms:RESEARCH. ,Z00.6 Encounter for examination for normal comparison and control in clinical research program COMPARISON: None. ACCESSION NUMBER(S): [id number] ORDERING CLINICIAN: FAUSTINO HOYOS TECHNIQUE: Research protocol: Multiplanar multisequence MR imaging was performed through the brain prior to and following administration of 18 ML Dotarem intravenous contrast. Mild motion degradation on several sequences. FINDINGS: Parenchyma: There is no diffusion restriction abnormality to suggest acute infarct on DTI sequence. No evidence of recent hemorrhage. There is no mass effect or midline shift. No abnormal parenchymal or leptomeningeal enhancement. Significant focal parenchymal signal abnormality appreciated with motion artifact mildly degrading volumetric FLAIR. CSF Spaces: The ventricles, sulci and basal cisterns are within normal limits for age. Basilar cisterns are patent. Extra-axial spaces: No extra-axial fluid collection. Intracranial Flow Voids: There is decreased flow/enhancement seen within the expected location of the left sigmoid dural venous sinus with prominent enhancing emissary vein extending to the left posterior scalp (series 15, image 138). Paranasal Sinuses: Polypoid mucosal thickening of the left maxillary paranasal sinus. Additional partial opacification of the left anterior and posterior ethmoidal air cells. Additional mucosal thickening of the dtsy-nsemsbg-hxpt-right frontal sinuses, right ethmoidal air cells, and right maxillary paranasal sinus with scattered secretions. Mastoids: Clear. Orbits: Normal. Calvarium: No suspicious osseous marrow signal. IMPRESSION: Research protocol. No acute intracranial process or abnormal enhancement. Motion artifact mildly degrades assessment on several sequences with no definite focal parenchymal signal abnormality. 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 Paranasal sinus disease as above. MACRO: None Signed by: Fab Red 03/02/2024 10:25 AM Dictation workstation: [id number] us Faustino Hoyos MD IMG MRI PROCEDURES Final Res ult documented in this encounter Visit Diagnoses Diagnosis Encounter for examination for normal comparison and control in clinical research program- Primary Encounter for examination for normal comparison and control in clinical research program documented in this encounter Additional Health Concerns Assessment Noted Time A fall risk assessment has been complete d for the patient 12/06/2023 8:09 AM EDT documented as of this encounter Care Teams Retail Banking Manager Relationship Specialty Start Date End Date Misa Reed PA-C 917 [facility] [address] [place] [address] PCP - General Family Medicine 10/12/22 Violetta Gallegos MD 917 [facility] [address] [place] [address] Consulting Physician Cardiology 03/03/23 documented as of this encounter
--- OUTSIDE RECORDS SUMMARY | 2024-09-01 21:55 | XMS_ITS | Encounter Summary ---
Author Organization [facility] Address [address] [place] [address] Phone Care Team Providers Care Interface Developer Name Role Phone Misa Reed PA-C Primary Care Provider [phone] Violetta Gallegos MD Unavailable Reason for Referral * Imaging (Emergency) - Authorized Specialty Diagnoses / Procedures Referred By Contac t Referred To Contact Radiology Diagnoses Foot and ankle pain Procedures Urgent Care XrKy Quintana PA-C [address] [address] Phone: tel: fax: Referral ID Status Reason Start Date Expiration Date Visits Requested Visits Authorized [id number] Authorized Perform Procedure 09/10/2023 09/09/2024 1 1 * Imaging (Emergency) - Authorized Specialty Diagnoses / Procedures Referred By Contac t Referred To Contact Radiology Diagnoses Foot and ankle pain Procedures Urgent Care XrKy Quintana PA-C [address] [address] Phone: tel: fax: Referral ID Status Reason Start Date Expiration Date Visits Requested Visits Authorized [id number] Authorized Perform Procedure 09/10/2023 09/09/2024 1 1 Encounter Details Date Type Department Care Team (Late st Contact Info) Description 09/10/2023 Community Orders [facility] [address] [place] [address] Ky Villafana PA-C 1997 [facility] [address] [place] [address] Foot and ankle pain (Primary Dx) Social History Tobacco Use Types Packs/Day Years Used Date Smoking Tobacco: Never Smokeless Tobacco: Never Alcohol Use Standard Drinks/Week Comments Yes 0 (1 standard drink = 0.6 oz pur e alcohol) occas Comments No Sex and Gender Information Value [...] suspected to have Coronavirus/COVID-19? No / Unsure 09/08/2023 8:28 AM EDT documented as of this encounter Plan of Treatment Upcoming Encounters Date Type Department Care Team (Late st Contact Info) Description 09/11/2024 2:30 PM EDT Routine [facility] [address] [phone] Elodia Ward APRN-CNArin [address] Department of DU[employer]ER BULK [place] [address] 09/25/2024 2:30 PM EDT Routine [facility] [address] [phone] Elodia Ward, ASSISTANT FACILITY MANAGER-CNM [address] Department of [employer] BULK [place] [address] 10/09/2024 2:45 PM EDT Routine [facility] [address] [facility] [address] [place] [address] Elodia Ward, ASSISTANT FACILITY MANAGER-CNM [address] Department of [employer] BULK [place] [address] 10/23/2024 2:45 PM EDT Routine [facility] [address] [facility] [address] [place] [address] Elodia Ward ASSISTANT FACILITY MANAGER-CNM [address] Department of [employer] BULK [place] [address] 10/30/2024 3:00 PM EDT Routine [facility] [address] [phone] Elodia Ward ASSISTANT FACILITY MANAGER-CNM [address] Department of [employer] BULK [place] [address] 11/06/2024 3:15 PM EDT Routine [facility] [address] [address] Elodia Ward ASSISTANT FACILITY MANAGER-CNM [address] Department of [employer]UL[employer] [place] [address] 11/13/2024 3:15 PM EDT Routine [facility] [address] [place] [address] Elodia Ward, ASSISTANT FACILITY MANAGER-CNM [address] Department of [employer] [address] 11/20/2024 4:00 PM EDT Office Visit [facility] 917 [facility] [address] [place] [address] Violetta Gallegos MD 917 [facility] [address] [place] [address] 11/21/2024 8:00 AM EDT Routine [address] [place] [phone] Elodia Ward, ASSISTANT FACILITY MANAGER-CN [address] [facility] Department of [employer] [place] [address] documented as of this encounter Results * Urgent Care Xray (09/10/2023 8:54 AM EDT) Anatomical Region Laterality Modality Computed Radiogr aphy 09/10/2023 9:41 AM EDT 09/10/2023 9:41 AM EDT Impressions 09/10/2023 9:40 AM EDT No osseous injury is evident. MACRO: None Signed by: Scott Tellez 09/10/2023 9:40 AM Dictation workstation: [id number] Narrative 09/10/2023 9:40 AM EDT Interpreted By: Scott Tellez, STUDY: XR URGENT CARE XRAY; 09/10/2023 8:54 am INDICATION: Signs/Symptoms:pain. COMPARISON: None. ACCESSION NUMBER(S): [id number]; [id number] ORDERING CLINICIAN: KY VILLAFANA TECHNIQUE: Three views of the right foot and three views of the right ankle FINDINGS: No fracture or dislocation is evident. No radiopaque foreign body or soft tissue gas is evident. Procedure Note Scott Tellez MD - 09/10/2023 Interpreted By: Scott Tellez, STUDY: XR URGENT CARE XRAY; 09/10/2023 8:54 am INDICATION: Signs/Symptoms:pain. COMPARISON: None. ACCESSION NUMBER(S): [id number]; [id number] ORDERING CLINICIAN: KY VILLAFANA TECHNIQUE: Three views of the right foot and three views of the right ankle FINDINGS: No fracture or dislocation is evident. No radiopaque foreign body or soft tissue gas is evident. IMPRESSION: No osseous injury is evident. MACRO: None Signed by: Scott Tellez 09/10/2023 9:40 AM Dictation workstation: [id number] us Ky Villafana PA-C IMG XR PROCEDURES Final Resu lt * Urgent Care Xray (09/10/2023 8:54 AM EDT) Anatomical Region Laterality Modality Computed Radiogr aphy 09/10/2023 9:41 AM EDT 09/10/2023 9:41 AM EDT Impressions 09/10/2023 9:40 AM EDT No osseous injury is evident. MACRO: None Signed by: Scott Tellez 09/10/2023 9:40 AM Dictation workstation: [id number] Narrative 09/10/2023 9:40 AM EDT Interpreted By: Scott Tellez, STUDY: XR URGENT CARE XRAY; 09/10/2023 8:54 am INDICATION: Signs/Symptoms:pain. COMPARISON: None. ACCESSION NUMBER(S): [id number]; [id number] ORDERING CLINICIAN: KY VILLAFANA TECHNIQUE: Three views of the right foot and three views of the right ankle FINDINGS: No fracture or dislocation is evident. No radiopaque foreign body or soft tissue gas is evident. Procedure Note Scott Tellez MD - 09/10/2023 Interpreted By: Scott Tellez, STUDY: XR URGENT CARE XRAY; 09/10/2023 8:54 am INDICATION: Signs/Symptoms:pain. COMPARISON: None. ACCESSION NUMBER(S): [id number]; [id number] ORDERING CLINICIAN: KY VILLAFANA TECHNIQUE: Three views of the right foot and three views of the right ankle FINDINGS: No fracture or dislocation is evident. No radiopaque foreign body or soft tissue gas is evident. IMPRESSION: No osseous injury is evident. MACRO: None Signed by: Scott Tellez 09/10/2023 9:40 AM Dictation workstation: [id number] us Ky Villafana PA-C IMG XR PROCEDURES Final Resu lt documented in this encounter Visit Diagnoses Diagnosis Foot and ankle pain- Primary Foot and ankle pain Foot and ankle pain documented in this encounter Care Teams Interface Developer Relationship Specialty Start Date End Date Misa Reed PA-C 917 [facility] [address] [place] [address] PCP - General Family Medicine 10/12/22 Violetta Gallegos MD 917 [facility] [address] [place] [address] Consulting Physician Cardiology 03/03/23 documented as of this encounter
--- NOTE | 2024-09-01 22:15 | PC.NURSE ---
pt presents to unit with complaints of high blood pressure. pt states she has had lower extremity swelling off and on for a few weeks and her BP is usually normal. something told her to take her BP yesterday and it was 154/98. her aquatic physiotherapist advised her to rest and hydrate. today her BPs have been 130/80 and most recently 164/102 which prompted her to come here to be evaluated. she has been stressed with her recent gma passing away and planning her . pt denies any other s/s. no nausea/dizziness/vision changes. no swelling noted to lower extremities.
[2024-09-01] MEDS: LABETALOL HCL 20 MG/4 ML SYRINGE IVP (23:12)
[2024-09-01 23:15] LABS: Hematocrit 35.3 % (36.0-48.0); Hemoglobin 12.3 g/dL (12.0-16.0); Immature Granulocytes Abs Auto 0.03 10^3/uL (0.00-0.03); Immature Granulocytes Pct Auto 0.2 % (0.0-0.5); Lymphocytes Absolute Auto 3.8 10^3/uL (1.2-3.8); Mean Corpuscular HGB Conc 34.8 g/dL (29.9-35.2); Mean Corpuscular Hemoglobin 31.5 pg (26.7-34.0); Mean Corpuscular Volume 90.5 fL (81.0-99.0); Platelet Count 280 10^3/uL (150-450); Red Blood Count 3.90 10^6/uL (4.20-5.40); White Blood Count 12.6 10^3/uL (4.0-11.0)
[2024-09-01 23:19] LABS: Glucose Urine UA NEGATIVE (NEGATIVE)
[2024-09-01 23:41] LABS: Alanine Aminotransferase 27 U/L (14-59); Albumin Globulin Ratio 0.6; Albumin Level 2.3 g/dL (3.4-5.0); Alkaline Phosphatase 157 U/L (46-116); Anion Gap 11.9; Aspartate Amino Transferase 26 U/L (15-37); Blood Urea Nitrogen 14.0 mg/dL (7.0-18.0); Calcium 9.5 mg/dL (8.5-10.1); Carbon Dioxide 28.9 mmol/L (21.0-32.0); Chloride 103 mmol/L (98-107); Estimated GFR (African America >60 (>=60 mL/min/1.73m^2); Estimated GFR (Non-African Ame >60 (>=60 mL/min/1.73m^2); Globulin 4.1 g/dL; Glucose 82 mg/dL (74-106); Potassium 3.8 mmol/L (3.5-5.1); Sodium 140 mmol/L (136-145); Total Protein 6.4 g/dL (6.4-8.2); Uric Acid 5.7 mg/dL (2.6-6.0)
[2024-09-01 23:53] LABS: Protein Creatinine Ratio Urine 0.00; Total Protein Urine Random 6.7 mg/dL (<=11.9)
[2024-09-02] VITALS (17 sets, daily range): BP systolic 114–167; BP diastolic 63–94; PULSE 61–80; TEMP 36.6–36.7
[2024-09-02 00:36] LABS: Fibrinogen 366 mg/dL (200-400)
[2024-09-02] MEDS: LABETALOL HCL 100 MG TABLET 200 MG PO (03:47)
--- NOTE | 2024-09-02 10:19 | P.OBPN_ITS ---
OB - PN: Subj Subjective Patient comments: no complaints Narrative: patient came to unit last evening with elevated blood pressure. She is from out of town and here for her husbands grandma's . She states it's a great loss, and so stressful, and my anxiety is all over the place. She did have elevated BP on arrival of Exam Constitutional Vital Signs, click to edit/add: Last Vital Signs Temp 97.9 F 09/02/24 03:49 Pulse 69 09/02/24 10:19 Resp 14 09/02/24 03:49 BP 128/70 09/02/24 10:19 O2 Del Method Room Air 09/02/24 03:49 Results Labs Labs: Short CBC 09/01/24 Range/Units 22:56 WBC 12.6 H (4.0-11.0) 10^3/uL Hgb 12.3 (12.0-16.0) g/dL Hct 35.3 L (36.0-48.0) % Plt Count 280 (150-450) 10^3/uL BMP 09/01/24 22:56 Sodium 140 Potassium 3.8 Chloride 103 Carbon Dioxide 28.9 BUN 14.0 Creatinine 0.89 Glucose 82 Calcium 9.5 Liver Function 09/01/24 Range/Units 22:56 Total Bilirubin 0.3 (0.2-1.0) mg/dL AST 26 (15-37) U/L ALT 27 (14-59) U/L Alkaline Phosphatase 157 H (46-116) U/L Albumin 2.3 L (3.4-5.0) g/dL Urine 09/01/24 Range/Units 22:57 Urine Color Lt. yellow (YELLOW) Urine Clarity Clear (CLEAR) Urine pH 6.0 (5.0-9.0) Ur Specific [place] <=1.005 A (1.005-1.025) Urine Protein Negative (NEG/TRACE) mg/dL Urine Glucose (UA) Negative (NEGATIVE) mg/dL OB - PN: A/P Time Spent with Patient Time: Total time spent is greater than 50% in coordination of care (as documented) at patient's floor/unit and/or counseling patient: Total time spent with greater than 50% in coordination of care (as documented) at patient's floor/unit and/or counseling patient: less than 15 minutes
--- NOTE | 2024-09-02 10:26 | P.OBPN_ITS ---
OB - PN: Subj Subjective Narrative: patient is from out of town and currently 28.2 weeks with her first baby. She sees a train electronic technician in [place] and is in town for her 's grandmas . She passed and I am very stressed, sad, upset and my anxiety is bad. She took her blood pressure yesterday and decided to come in and be evaluated as she states It was really high . She called her provider and they wanted her to come there but she felt she should go to the closest hospital. Upon arrival her blood pressures were 176/89, 180/93, 182/96. Patient denied headache, visual changes and no epigastric pain. I did order IV labetalol 20 mg to get the blood pressure down, and pre-e labs ordered. Patient does routinely take a baby ASA daily. She does have a history of anxiety and takes medication. Citalopram and states it does help Pre-e labs were normal, and BP came down nicely after med. 146/71, 148/78, 131/78, 132/81, 114/72 and 128/70 Did well throughout the night with no needs. This morning on assessment BP was 114/72 and she has no c/o or s/s of pre-e denies headache, no visual changes, no epigastric/flank pain and states I do want to go home. She did speak with her train electronic technician this morning and they want to see her tomorrow morning. We will print off her lab results and give to the patient to take to her provider tomorrow. Exam Constitutional Vital Signs, click to edit/add: Last Vital Signs Temp 97.9 F 09/02/24 03:49 Pulse 69 09/02/24 10:19 Resp 14 09/02/24 03:49 BP 128/70 09/02/24 10:19 O2 Del Method Room Air 09/02/24 03:49 Documenting provider has reviewed patient's vital signs: yes Common normals: no apparent distress Exam limitations: altered mental status General appearance: cooperative, comfortable, well kempt and well developed Orientation/consciousness: Yes awake, Yes oriented to person, Yes oriented to place and Yes oriented to time HENWI Common normals: normocephalic Eye Common normals: EOMs intact bilaterally Neck & C-Spine Common normals: full ROM Lymph Lymphatic: no lymphadenopathy noted Chest Common normals: inspection of chest normal Respiratory Common normals: normal respiratory effort, no retractions, no use of accessory muscles and clear to auscultation bilaterally Effort & inspection: able to speak in complete sentences Auscultation: clear to auscultation bilaterally Cardio Common normals: regular rate Rate: regular rate Rhythm: regular rhythm GI Common normals: Normal to inspection, nondistended, normoactive bowel sounds present, soft to palpation and non-tender Inspection: normal to inspection Palpation: soft Rectal Exam - Female: deferred Common normals: no CVA tenderness Back & Pelvis Common normals: no CVA tenderness Extremity Common normals: normal to inspection and full ROM Neuro Common normals: oriented x3 Sensorium/orientation: awake, alert, oriented to person, oriented to place and oriented to time Psych Common normals: mental status grossly normal, thought process normal, cooperative, affect normal, speech normal, activity/motor behavior normal, denies hallucinations, denies homicidal ideation and denies suicidal ideation Appearance: grossly normal and well kempt Attitude: calm Activity/motor behavior: appropriate eye contact Thought process: normal thought process Thought content: normal thought content Results Labs Labs: Short CBC 09/01/24 Range/Units 22:56 WBC 12.6 H (4.0-11.0) 10^3/uL Hgb 12.3 (12.0-16.0) g/dL Hct 35.3 L (36.0-48.0) % Plt Count 280 (150-450) 10^3/uL BMP 09/01/24 22:56 Sodium 140 Potassium 3.8 Chloride 103 Carbon Dioxide 28.9 BUN 14.0 Creatinine 0.89 Glucose 82 Calcium 9.5 Liver Function 09/01/24 Range/Units 22:56 Total Bilirubin 0.3 (0.2-1.0) mg/dL AST 26 (15-37) U/L ALT 27 (14-59) U/L Alkaline Phosphatase 157 H (46-116) U/L Albumin 2.3 L (3.4-5.0) g/dL Urine 09/01/24 Range/Units 22:57 Urine Color Lt. yellow (YELLOW) Urine Clarity Clear (CLEAR) Urine pH 6.0 (5.0-9.0) Ur Specific Jackson <=1.005 A (1.005-1.025) Urine Protein Negative (NEG/TRACE) mg/dL Urine Glucose (UA) Negative (NEGATIVE) mg/dL OB - PN: A/P Assessment and Plan (1) Elevated blood pressure affecting in second trimester, antepartum: Time Spent with Patient Time: Total time spent is greater than 50% in coordination of care (as documented) at patient's floor/unit and/or counseling patient: Total time spent with greater than 50% in coordination of care (as documented) at patient's floor/unit and/or counseling patient: less than 15 minutes
== END 2024-09-02 10:50 | disposition home or self-care (01) ==
PROVIDERS: Admitting Provider Obstetrics & Gynecology; PCP Physician Assistant; Visit Provider Obstetrics & Gynecology
DX: O26.893 Other specified pregnancy related conditions, third trimester (principal); R03.0 Elevated blood-pressure reading, without diagnosis of hypertension; Z3A.28 28 weeks gestation of pregnancy; O99.343 Other mental disorders complicating pregnancy, third trimester; F41.9 Anxiety disorder, unspecified
CPT/HCPCS: 36415; 59025; 80053; 81003; 82565; 82570; 83615; 84156; 84450; 84460; 84520; 84550; 85025; 85384; 96374; G0378; G0379; J1920